=== PATIENT | female | born 1995 | race Caucasian/White ===

== ENCOUNTER 2017-11-06 16:30 | Inpatient (IN) | payer OTHER ==
[~2017-11-06] VITALS: Ht 167.6 cm; Wt 92.5 kg
[~2017-11-06 16:30] MED LIST: BCPILLS PO; NAPR1TAB9 PO
[2017-11-06] MEDS ORDERED: LACTATED RINGER'S 1000ML 1,000 ML IV PRN (17:06)
[2017-11-06 17:30] LABS: HEMATOCRIT 36.7 % (37-47); HEMOGLOBIN 12.2 g/dL (12.0-16.0); MEAN CELL VOLUME 82.5 fL (80-100); MEAN CORPUSCULAR HEMOGLOBIN 27.4 pg (25-34); MEAN CORPUSCULAR HGB CONC 33.2 g/dl (32-36); MEAN PLATELET VOLUME 9.7 fL (7.4-10.4); PLATELET COUNT 276 K/uL (130-400); RED CELL DISTRIBUTION WIDTH CV 14.7 % (11.5-14.5); RED CELL DISTRIBUTION WIDTH SD 44.6 fL (36.4-46.3); WHITE BLOOD COUNT 13.07 K/uL (4.8-10.8)
[2017-11-06] MEDS ORDERED: LACTATED RINGER'S 1000ML 500 ML IV PRN ×2 (17:41→20:28)
[2017-11-06] MEDS ORDERED: OXYTOCIN 30 UNITS/500ML NSS IV PRN (17:45)
[2017-11-06] MEDS ORDERED: PRENTAB26 PO (17:58)
[2017-11-06 17:59] VITALS: Ht 167.6 cm; Wt 92.5 kg
[2017-11-06] MEDS: LACTATED RINGER'S 1000ML 1,000 ML IV SCH ×2 (18:16→20:28)
[2017-11-06] MEDS ORDERED: BUPIVACAINE 0.25% 30 ML VIAL ONE (19:28)
[2017-11-06] MEDS ORDERED: FENTANYL CITRATE INJ 50 MCG/1 ML 2 ML VIAL ONE (19:28)
[2017-11-06] MEDS ORDERED: EpHEDrine SULFATE INJ 50 MG/ML AMP ONE (19:28)
[2017-11-06] MEDS ORDERED: FENTANYL 2MCG/ML ROPIV 1.25MG/ML 100ML BAG ONE (19:29)
[2017-11-06] MEDS ORDERED: NALOXONE HCL INJ 1 MG in SODIUM CHLORIDE 0.9% 1000ML 1,000 ML IV PRN ×4 (20:28)
[2017-11-06] MEDS ORDERED: PROMETHAZINE HCL INJ 25 MG in SODIUM CHLORIDE 0.9% 50ML 50 ML IV PRN (20:30)
[2017-11-06] MEDS ORDERED: DiphenhydrAMINE HCL 50 MG/ML VIAL IV PRN (20:30)
[2017-11-06] MEDS ORDERED: FENTANYL 2MCG/ML ROPIV 1.25MG/ML 100ML BAG EPI PRN (20:30)
[2017-11-06] MEDS ORDERED: NALBUPHINE HCL INJ 10 MG/ML AMP IV PRN (20:30)
[2017-11-06] MEDS ORDERED: NALOXONE HCL INJ 0.4 MG/1 ML VIAL/CARP IV PRN (20:30)
[2017-11-06] MEDS ORDERED: EpHEDrine SULFATE INJ 50 MG/ML AMP IV PRN (20:30)
[2017-11-06] MEDS ORDERED: ONDANSETRON INJ 2 MG/ML 2 ML VIAL IV PRN (20:30)
[2017-11-07] MEDS ORDERED: FENTANYL CITRATE INJ 50 MCG/1 ML 2 ML VIAL ONE (00:14)
--- NOTE | 2017-11-07 00:24 | Anesthesiology Progress Note ---
Post OP Pain Management Date & Time of Service November 07, 2017 at 00:20 Subjective Therapies: Epidural/IV Drugs, Marcaine, Fentanyl pain is 10/10 Objective Cathether Site: examined, palpated, intact, dry, non-tender, without erythma, without exudate Assessment & Plan Pain Relief Assessment: epiduralto be bolused Plan: At 0018,epidural catheter bolused with 12 ml of 0.17% bupivacaine + 100 mcgs fentanyl with incremental aspirations and injections. Vital signs are stable.
[2017-11-07] MEDS ORDERED: OXYTOCIN 30 UNITS/500ML NSS IV PRN (01:30)
[2017-11-07] MEDS ORDERED: DIPHTHERIA/TETANUS/PERTUSSIS 0.5 ML SYR/VIAL IM. ONE (01:30)
[2017-11-07] MEDS ORDERED: SUPERCREAM 0.870 % 15GM JAR EXT PRN (01:30)
[2017-11-07] MEDS ORDERED: OXYCODONE/ACETAMINOPHEN 5-325 TAB PO PRN (01:30)
[2017-11-07] MEDS ORDERED: LANOLIN OINT EXT PRN (01:30)
[2017-11-07] MEDS ORDERED: BENZOCAINE 20% AER SPR 82.5 GM CAN EXT PRN (01:30)
[2017-11-07] MEDS ORDERED: ACETAMINOPHEN 325 MG TAB PO PRN (01:30)
[2017-11-07] MEDS ORDERED: HYDROCORTISONE ACETATE 25 MG SUPP PR PRN (01:30)
--- NOTE | 2017-11-07 03:35 | Anesthesia Procedure Note ---
Anesthesia Epidural Removal Nt Date & Time November 07, 2017 at 03:35 Vital Signs Pain Intensity: 0.0 Notes Mental Status: alert / awake / arousable, participated in evaluation Nausea / Vomiting: adequately controlled Pain: adequately controlled Airway Patency, RR, SpO2: stable & adequate BP & HR: stable & adequate Hydration State: stable & adequate Neuraxial Anesthesia: was administered Anesthetic Complications: no major complications apparent, pt satisfied with anesthetic care Epidural: removed without complications, with tip intact
[2017-11-07 04:20] VITALS: BP 127/78; PULSE 108; TEMP 36.9
--- NOTE | 2017-11-07 04:22 | DELIVERY SUMMARY ---
DATE OF OPERATION: 11/07/2017 TIME OF DELIVERY: 1:03 a.m. DELIVERY OF PLACENTA: 1:05 a.m. DELIVERY NOTE: The patient is a 21-year-old 1, para 0 at 38 weeks and 4 days gestation, who was admitted to labor and delivery on the evening of 11/06/2017 with spontaneous rupture of membranes that occurred at 1550. A large amount of clear amniotic fluid was noted. On arrival, she was grossly ruptured. She was found to be 2 to 3 cm, 70% effaced, and -2 station. After the patient was allowed to ambulate for a couple of hours, oxytocin per protocol was begun for labor augmentation. She received an epidural for anesthesia. She reached complete dilation at 0049 on 11/07/2017 with urge to push. The patient pushed to delivery at 1:03 a.m. She delivered a viable male in the left occiput anterior position to an intact perineum. Nuchal cord x1 was reduced at delivery. The baby was then delivered and placed on the patient's abdomen. Cord was clamped x2 and cut. Apgars were 8 at 1 minute and 10 at 5 minutes. Please see nursing notes for further baby assessment. Cord blood was then obtained, and intact placenta with 3-vessel cord was delivered at 1:05 a.m. Oxytocin infusion was then begun. The lower uterine segment and vagina were cleared of any blood clots and debris. Exploration of the perineum noted a right labial laceration, which was repaired with 3-0 Vicryl suture in continuous running fashion. Excellent hemostasis was noted. No other lacerations were seen. Estimated blood loss was 200 mL. All sponge, instrument, and needle counts found to be correct x2. Both the patient and baby tolerated the delivery well and were in recovery with stable vital signs. I attest to the content of the Intraoperative Record and any orders documented therein. Any exception s are noted below.
[2017-11-07] MEDS: IBUPROFEN 600 MG TAB PO PRN ×3 (06:14→16:49)
[2017-11-07] MEDS ORDERED: FENTANYL CITRATE INJ 50 MCG/1 ML 2 ML VIAL IV PRN (07:45)
[2017-11-07] MEDS: DOCUSATE SODIUM 100 MG CAP PO SCH ×2 (08:36→19:37)
[2017-11-07] MEDS: PRENATAL VITAMIN TAB PO SCH (08:36)
[2017-11-07] MEDS: FERROUS SULFATE 325 MG TAB PO SCH (08:37)
[2017-11-07 08:43] VITALS: BP 132/89; PULSE 90; TEMP 36.6; O2SAT 99
[2017-11-07 12:25] VITALS: BP 133/85; PULSE 97; TEMP 36.9; O2SAT 98
[2017-11-07 19:25] VITALS: BP 124/79; PULSE 90; TEMP 36.8
[2017-11-08 00:35] VITALS: BP 108/69; PULSE 89; TEMP 36.7
[2017-11-08] MEDS: IBUPROFEN 600 MG TAB PO PRN ×5 (00:36→19:30)
[2017-11-08 07:09] LABS: HEMATOCRIT 34.8 % (37-47); HEMOGLOBIN 11.4 g/dL (12.0-16.0)
[2017-11-08 07:56] VITALS: BP 133/87; PULSE 105; TEMP 36.7
[2017-11-08] MEDS: DOCUSATE SODIUM 100 MG CAP PO SCH ×2 (08:51→19:30)
[2017-11-08] MEDS: FERROUS SULFATE 325 MG TAB PO SCH (08:51)
[2017-11-08] MEDS: PRENATAL VITAMIN TAB PO SCH (08:51)
--- NOTE | 2017-11-08 09:29 | OB/GYN Progress Note ---
[facility]UST[facility] HYGENIST Progress Note Date of Service November 08, 2017. Subjective conversation w/ patient, physical exam Ambulation: ambulating normally Voiding: no voiding problems Passing Gas: Yes Diet Tolerance: Regular Diet Lochia: Small Feeding Type: Breast Feeding Objective Vital Signs Date Time Temp Pulse Resp B/P (MAP) Pulse Ox O2 Delivery O2 Flow Rate FiO2 11/08/17 07:56 36.7 105 20 133/87 (102) Room Air 11/08/17 07:40 Room Air 11/08/17 00:35 Room Air 11/08/17 00:35 36.7 89 16 108/69 (82) Room Air 11/07/17 19:25 36.8 90 20 124/79 (94) Room Air 11/07/17 15:30 Room Air 11/07/17 12:25 36.9 97 20 133/85 (101) 98 Room Air Physical Exam General Appearance: WELL-APPEARING, NO APPARENT DISTRESS Abdomen: non tender, soft Fundus: Firm Extremities: non-tender, normal inspection, no pedal edema Laboratory Results Last 24 Hours Test 11/08/17 06:09 Hemoglobin 11.4 g/dL Hematocrit 34.8 % Assessment and Plan Post- Day Number: 1 Continue Routine Care: tent d/c in AM
[2017-11-08 15:40] VITALS: BP 127/84; PULSE 98; TEMP 36.9; O2SAT 97
[2017-11-08] MEDS ORDERED: BISACODYL 5 MG TABEC PO SCH (20:00)
[2017-11-09 00:20] VITALS: BP 131/82; PULSE 96; TEMP 36.5
[2017-11-09] MEDS: IBUPROFEN 600 MG TAB PO PRN ×2 (00:25→06:14)
[2017-11-09] MEDS ORDERED: BISACODYL 10 MG SUPP PR PRN (07:00)
[2017-11-09 07:14] LABS: HEMATOCRIT 34.2 % (37-47); HEMOGLOBIN 11.3 g/dL (12.0-16.0); MEAN CELL VOLUME 83.8 fL (80-100); MEAN CORPUSCULAR HEMOGLOBIN 27.7 pg (25-34); MEAN PLATELET VOLUME 9.2 fL (7.4-10.4); PLATELET COUNT 286 K/uL (130-400); RED CELL DISTRIBUTION WIDTH CV 15.1 % (11.5-14.5); RED CELL DISTRIBUTION WIDTH SD 46.9 fL (36.4-46.3); WHITE BLOOD COUNT 11.43 K/uL (4.8-10.8)
[2017-11-09 08:16] VITALS: BP 112/70; PULSE 92; TEMP 36.6
[2017-11-09] MEDS: DOCUSATE SODIUM 100 MG CAP PO SCH (08:22)
[2017-11-09] MEDS: PRENATAL VITAMIN TAB PO SCH (08:23)
[2017-11-09] MEDS: FERROUS SULFATE 325 MG TAB PO SCH (08:23)
[2017-11-09] MEDS ORDERED: MTR600X PO (09:49)
--- NOTE | 2017-11-09 09:50 | Discharge Instructions ---
Discharge Instructions Date of Service November 09, 2017. Admission Reason for Admission: Check Rupture Of Membranes Discharge Discharge Diagnosis / Problem: term delivered Discharge Goals Goal(s): Routine recovery after delivery Activity Recommendations Activity Limitations: as noted below Exercise/Sports Limitations: gradually increase as tolerated May Resume Sexual Activity: after follow-up appointment Shower/Bathe: no limitations Driving or Machine Use: resume 3 days after discharge . Current Hospital Diet Patient's current hospital diet: Regular OB Diet Discharge Diet Recommended Diet: Regular OB Diet Pending Studies Studies pending at discharge: no Medical Emergencies . Who to Call and When: Medical Emergencies: If at any time you feel your situation is an emergency, please call 911 immediately. . Non-Emergent Contact Non-Emergency issues call your: Primary Care Provider . . "Provider Documentation" section prepared by Zuhair Matamoros. .
--- NOTE | 2017-11-09 09:51 | OB/GYN Progress Note ---
SPACE PHYSICIST Progress Note Date of Service November 09, 2017. Subjective conversation w/ patient, physical exam Ambulation: ambulating normally Voiding: no voiding problems Passing Gas: Yes Diet Tolerance: Regular Diet Lochia: Small Feeding Type: Breast Feeding Objective Vital Signs Date Time Temp Pulse Resp B/P (MAP) Pulse Ox O2 Delivery O2 Flow Rate FiO2 11/09/17 08:16 36.6 92 20 112/70 (84) Room Air 11/09/17 07:40 Room Air 11/09/17 00:20 36.5 96 18 131/82 (98) Room Air 11/09/17 00:20 Room Air 11/08/17 15:40 97 Room Air 11/08/17 15:40 36.9 98 18 127/84 (98) 97 Room Air Physical Exam General Appearance: WELL-APPEARING, NO APPARENT DISTRESS Abdomen: non tender, soft Fundus: Firm Extremities: non-tender, normal inspection, no pedal edema, no calf tenderness Laboratory Results Last 24 Hours Test 11/09/17 06:00 White Blood Count 11.43 K/uL Red Blood Count 4.08 M/uL Hemoglobin 11.3 g/dL Hematocrit 34.2 % Mean Corpuscular Volume 83.8 fL Mean Corpuscular Hemoglobin 27.7 pg Mean Corpuscular Hemoglobin Concent 33.0 g/dl RDW Standard Deviation 46.9 fL RDW Coefficient of Variation 15.1 % Platelet Count 286 K/uL Mean Platelet Volume 9.2 fL Assessment and Plan Post- Day Number: 2 Continue Routine Care: discharged
[2017-11-09 10:01] VITALS: BP_DIAS 70; PULSE 92; TEMP 36.6
== END 2017-11-09 11:36 | disposition home or self-care (01) | DRG 775 ==
LOC: C.OPB 16:30 → C.LD 16:30 → C.OPB 17:09 → C.LD 17:09 → C.OBG 11-07 04:12
PROVIDERS: ADMIT Obstetrics & Gynecology; ATTEND Obstetrics & Gynecology
PROC: 10E0XZZ Delivery of Products of Conception, External Approach (ICD-10-PCS; principal; 2017-11-07)
DX: O70.0 First degree perineal laceration during delivery (principal); O69.81X0 Labor and delivery complicated by cord around neck, without compression, not applicable or unspecified; Z37.0 Single live birth; Z3A.38 38 weeks gestation of pregnancy

== ENCOUNTER 2024-09-16 07:38 | Inpatient (IN) ==
[2024-09-16] MEDS ORDERED: LIDOCAINE 1% LOCAL 20 ML VIAL INFIL PRN (10:07)
[2024-09-16] MEDS ORDERED: OXYTOCIN 30 UNITS/NSS 30 UNITS/500 ML BAG IV PRN ×2 (10:07→16:49)
[2024-09-16] MEDS ORDERED: CALCIUM CARBONATE 500 MG CHEWABLE TAB PO PRN (10:07)
--- NOTE | 2024-09-16 10:14 | History & Physical Report ---
Date of Service September 16, 2024 Assessment & Plan Admission and Anticipated Discharge Date Admission Date: September 16, 2024 History of Present Illness Chief Complaint: induction of labor Primary Care Provider: Jimmie Peguero MD 27 [id number] at 39.1 weeks admitted for IOL for GDM on insulin. Blood sugars have been OK and patient states she has not been taking her insulin. GBS is positive. Allergies Allergy/AdvReac Type Severity Reaction Status Date / Time No Known Allergies Allergy Unverified 12/15/20 12:04 Home Medications Medication Instructions Recorded Confirmed Type vit no.133-ferrous 1 tab PO DAILY 08/14/23 09/16/24 History fumarate 28 mg-folic acid 800 mcg tablet () ferrous sulfate 325 mg (65 mg 325 mg PO DAILY 08/20/24 09/16/24 History iron) tablet (Iron (ferrous sulfate)) insulin glargine 100 unit/mL (3 12 unit subcut PM 09/01/24 09/01/24 History mL) subcutaneous pen (Lantus Solostar U-100 Insulin) Patient History Medical History Hyperhidrosis Gestational diabetes mellitus (GDM) on insulin Anxiety Surgical History [place] teeth removed Family History Grandmother (Maternal) Diabetes Father Hypertension Other Gestational diabetes Social History Smoking Status: Former smoker Tobacco Type: E-cigarettes / Vaping Second Hand Exposure: No; Do You Dip or Chew Tobacco: No; Hx Alcohol Use: No Hx Substance Use: No Preferred Language: Ken[place] Communication Ability: Effective Settlement Worker Required: No Beliefs That Will Affect Care: None marital status: marital status details: Inderjit Clement Current Living Situation: Spouse current occupational status: employed current occupation: [employer] Insurance [employer]it Other Information That Helps Us Care for You: No Feels Safe at Home: Yes Safety Concerns: Feels Safe At This Time Diet Comment: Diabetic Assistive Devices: Glasses OB History x1 CONDUCTOR ORCHESTRA History neg Review of Systems All systems reviewed & are unremarkable except as noted in HPI & below Physical Exam Constitutional: WD/WN, vitals as above Eyes: PERRL, conjunctivae normal, anicteric sclerae Respiratory: normal respiratory effort, lungs clear to auscultation Cardiovascular: RRR, no murmur, no edema Gastrointestinal (Abdomen): Inspection/Auscultation: abdomen normal to inspection Musculoskeletal: Extremities: extremities normal to inspection Skin: no rashes, warm and dry Neurologic: patellar DTR's 2+ bilat, sensation intact Psychiatric: A+Ox3, euthymic affect Genitourinary: no vaginal lesions, no adnexal mass Manual OB Exam: + cervical dilation 2 cm and 3 cm, + cervical effacement 50% and + station -2 OB Exam Monitor Tracing: + external FHT monitor used, + external uterine monitor used, + category I and + normal FHT variability Cervix anterior/mod. EFW 7.0-7.5 lbs. will start Oxytocin Results & Data Vital Signs (Past 12 Hours) Vital Signs Temp Pulse Resp BP 09/16/24 07:52 36.4 C L 100 H 20 132/81 09/16/24 07:45 100 H 20 132/81 Laboratory Results 09/16/24 09:03 POC Glucose 109 H Monitoring External Monitor Cat i
[2024-09-16 10:48] LABS: Hematocrit (blood only) 35.2 % (37.0-47.0); Hemoglobin 11.7 g/dl (12.0-16.0); Mean Corpuscular Hemoglobin 27.3 pg (25.0-34.0); Mean Corpuscular Hgb Conc 33.2 g/dL (32.0-36.0); Mean Corpuscular Volume 82.1 fL (80.0-100.0); Mean Platelet Volume 9.7 fL (9.4-12.4); Platelet Count 252 K/uL (130-400); RDW Coefficient of Variation 16.1 % (11.5-14.5); RDW Standard Deviation 48.6 fL (36.4-46.3); Red Blood Count 4.29 M/uL (4.20-5.40); White Blood Count 9.82 K/ul (4.8-10.8)
[2024-09-16] MEDS: OXYTOCIN 30 UNITS/NSS 30 UNITS/500 ML BAG IV PRN (10:59)
[2024-09-16] MEDS: LACTATED RINGER'S 1,000 ML IV PRN (10:59)
[2024-09-16] MEDS: PENICILLIN GK 6 MU in DEXTROSE 5% 250 ML IV STA (11:01)
--- OUTSIDE RECORDS SUMMARY | 2024-09-16 11:59 | External Medical Summary | Summary of Care ---
Author Name Unknown Organization [facility] [address] [address] Phone [phone] Care Team Providers Care Textile Supervisor Name Role Phone Unavailable Primary Care Provider Unavailabl e Reason for Visit * Reason Comments Return Visit Encounter Details Date Type Department Care Team (Late st Contact Info) Description 09/03/2024 10:00 AM EDT Office Visit Gynecology/Obstetric s [facility] [place] [address] [id number] Juliette Mendoza CRNP [address] [id number] [place], Non Stress Tests [facility] [address] [id number] High-risk , third trimester*; Rh negative, antepartum; Carrier of group B Streptococcus; Obesity in ; Short interval between pregnancies complicating , antepartum; Insulin controlled gestational diabetes mellitus (GDM) in third trimester; Antepartum anemia complicating ; COVID-19 affecting in third trimester Allergies No known active allergiesdocumented as of this encounter (statuses as of 09/03/2024) Medications Plus 27-1 MG Oral TabletIndication s:Normal in first trimester Take 1 Tablet by mouth in the morning. 100 Tablet 3 07/04/2023 11:02 AM EST 01/11/20 23 Active Breast Pump Pump daily while 1 Each 06/26/19 24 Active OneTouch Verio w/Device KitIndications:H istory of gestational diabetes mellitus (GDM),Encounter for supervision of other normal in first trimester Use as directed. For testing blood sugar 4 times a day (fasting, and 1 hour after each meal - breakfast, lunch, dinner). 1 Kit 03/03/2024 12:34 PM EDT 03/03/20 24 Active OneTouch Verio In Vitro Strip (Glucose Blood)Indication s:History of gestational diabetes mellitus (GDM),Encounter for supervision of other normal in first trimester For testing blood sugar 4 times a day (fasting, and 1 hour after each meal - breakfast, lunch, dinner). 400 Strip 1 04/09/2024 5:51 PM EDT 04/09/20 24 Active LancetsIndicatio ns:History of gestational diabetes mellitus (GDM),Encounter for supervision of other normal in first trimester For testing blood sugar 4 times a day (fasting, and 1 hour after each meal - breakfast, lunch, dinner). 400 Each 1 04/09/20 24 Active LancetsIndicatio ns:History of gestational diabetes mellitus (GDM),Encounter for supervision of other normal in first trimester For testing blood sugar 4 times a day (fasting, and 1 hour after each meal - breakfast, lunch, dinner). 100 Each 1 04/13/2024 9:20 AM EDT 04/12/20 24 Active BD Pen Needle Mini U/F 31G X 5 MM (Insulin Pen Needle)Indicatio ns:Insulin controlled gestational diabetes mellitus (GDM) in second trimester Use to inject insulin once daily. 100 Each 3 05/18/2024 3:22 PM EST 05/14/20 24 Active Insulin Glargine Solostar 100 UNIT/ML Subcutaneous Solution Pen-injector (Lantus SoloStar)Indicat ions:Insulin controlled gestational diabetes mellitus (GDM) in second trimester Inject 12 Units under the skin at bedtime. Take with bedtime snack. 15 mL 3 05/21/2024 12:04 PM EST 05/18/20 24 Active Iron-Vitamin C 65-125 MG Oral Tablet (Vitron C)Indications:An tepartum anemia complicating Take 1 Tablet by mouth in the morning. 60 Tablet 3 07/05/2024 3:57 PM EST 07/05/19 25 Active documented as of this encounter (statuses as of 09/03/2024) Active Problems Problem Noted Date Diagnosed Date COVID-19 affecting in third trimester 08/06/2024 Overview (08/06/2024): + test 07/16/24 Antepartum anemia complicating 025 GDM (gestational diabetes mellitus) 03/26/2024 Overview (08/30/2024): Diagnosed at 14 weeks via home glucose monitoring Nutrition consult ordered OneTouch Verio meter Note: history of GDMA2 (insulin) in prior 03/29/24: MFM ADAPT consult complete. Referred to [facility]. Instructions provided to report blood sugars each week for MFM review; A1C ordered; she has no blood sugar log to review today 04/05/24: A1C 4.9% 04/05/24: RPM reviewed; Stable overall; recommend fasting 8-10 hours overnight along with having a bedtime snack of 30g CHO paired with protein 04/12/2024-RPM-4 of 7 elevated fasting blood sugars. Patient and C PARs messaged to schedule follow up ADAPT appointment. 04/16/24: Follow-up ADAPT complete; stable overall; continue diet controlled; recommend fasting 8-10 hours overnight along with having a bedtime snack of 30g CHO paired with protein 04/19/20244568-MPT-llvm message to update numbers since ADAPT appointment on 04/16. 04/22/20244607-BFR-ubagcjix past 3 days; overall stable. 04/26/20248582-YEF-ccmxapa reporting. Sent message to update numbers 05/03/20249156-LMW-ofxd limited reported values. 2 of 2 elevated fasting blood sugars. Patient and C PARs messaged to schedule follow up ADAPT appointment. 05/10/20241870-LRW-wlocyutb one number in the past week. Sent message to patient reminding her of follow up ADAPT appointment today at 1230 and to have last week of sugars available for review. 05/10/24: Follow-up ADAPT visit complete; minimal testing and only 2 blood sugars to review; F/U ADAPT scheduled 11/26/24 @ 12:50PM 05/13/24: RPM reviewed; patient reporting blood sugars in since last visit; fasting elevations noted; messaged patient about considering starting medication 05/14/24: RPM reviewed; elevated FBS; as discussed with patient on 05/10, medication would be recommend pending blood sugar review; patient agreeable to insulin, she took in last and is comfortable with insulin administration; ordered Lantus 10 units at bedtime; encouraged patient to keep F/U ADAPT on 05/18/24 @ 12:50 as scheduled 05/17/20245315-BHH-ixzitcol fasting blood sugars. Reports just started insulin 05/15/2024 at night. Has follow up ADAPT appointment scheduled tomorrow. 05/18/20243549-JJK-dehayfq had to cancel her follow up ADAPT appointment today due to work. Sent message to maternal medicine nurse practitioners to review elevated fasting blood sugars 05/18/24: RPM reviewed; patient started insulin on 05/15; FBS improving but remains mildly elevated; increase to Lantus 12 units at bedtime 05/24/24: RPM reviewed; only reported 2/7 days of blood sugars; asked to update blood sugars in [facility] Robert 05/31/20241797-DXT-jmegjmxx 5 days in the past week; stable 06/07/20246025-ODX-dlhuzp 06/14/24: RPM reviewed; stable 06/21/20241480-WEQ-bmz not report 06/14 through 06/19; sent message asking her to update values. 06/24/20247227-VGW-cgapuvqi 3 of the past 4 days; stable 06/28/20247081-AEA-ovc not reported in past 3 days. Sent message to be consistent with testing/reporting. Will schedule follow up ADAPT next week if continues to not report regularly 07/01/20240946-DRW-gtc reported past 3 days. Overall stable (< 50% elevated) 07/07/20247979-JPD-yymvsofv 4 of the past 6 days. Stable (1 elevated fasting blood sugar) 07/13/20249775-YEL-nhrlwyf stable (< 50% elevated) 07/19/20246451-AXW-bbdcord reporting (what is reported is within normal limits). Sent message stating she had COVID and was focused on resting and staying hydrated rather than testing sugars. Reports will get "back on track" this week. 07/26/20245151-IGE-zxdnunyd 2 days in the past week. Sent message to update missed days for review. 08/02/20244351-GKA-wicbstbr 2/7, 2/9, and two values today. Stable 08/09/24: RPM reviewed; only reported one day; asked for updated blood sugars 08/16/24: RPM reviewed - no blood sugars reported; will ask patient to update and will offer ADAPT visit 08/20/20245395-MZJ-ijnpisds 08/16 to 08/19; stable 08/23/20245766-HNU-moxckg 08/30/20243888-HYW-kdyviipe 5 of 7 days in the past week; overall stable (< 50% elevated) Assessment & Plan (07/29/2024 10:29 AM EST): Needs ADAPT follow up visit. Assessment & Plan (07/01/2024 12:18 PM EST): Working with ADAPT. Assessment & Plan (05/25/2024 2:03 PM EST): Working with ADAPT; will continue to send sugars (fewer checked last week due to holiday). Assessment & Plan (03/26/2024 9:37 AM EDT): CONSIDERATIONS: Reviewed etiology and risks associated with gestational diabetes mellitus (GDM), including risks to , fetus, and maternal progression to Type 2 DM. Instructed on proper use of glucometer; supplies ordered, if indicated. Advised that life-long screening for diabetes is recommended every 1-3 years. RECOMMENDATIONS: Recommend monitoring blood sugars with daily fasting blood sugar (maintained at less than 95) and 1 hour postprandial measurements (maintained at less than 140). Medications should be adjusted to maintain these target values. Report levels to MFM (Maternal- Medicine) weekly. Recommend nutrition consult with RDN (Registered Dietitian Air Twister Winder). Lifestyle changes are also indicated including optimizing gestational weight gain and physical activity of 30 minutes per day, if not otherwise contraindicated in . Insulin is preferred if medications are indicated to optimize euglycemia. Metformin (preferred over glyburide) may also be used in some circumstances. Reviewed the risks and benefits of each. Recommend hemoglobin A1c testing now if diagnosed with GDM prior to 24 weeks as there is potential for pre-existing diabetes. If result is 6.5% or greater, then will diagnose with overt Type 2 DM and treat as pre-existing diabetes. If compliance later in gestation is question, a HBA1c can be assessed with a goal of less than 6%. Recommend early anatomy evaluation at 11-16 weeks gestation. Recommend anatomy survey at 19-20 weeks. Recommend echocardiography at 21-23 weeks if hemoglobin A1c 6.5% or greater Recommend ultrasound, surveillance and delivery as follows: A1GDM, delivery should be accomplished by 41w0d. A2GDM, recommend growth assessment with MFM every 4 weeks, initiate surveillance with twice weekly NSTs at 32 weeks and continue until delivery at 39 weeks. Recommend intrapartum monitoring every 1-2 hours (A2GDM) or every 4 hours (A1GDM) and treat with insulin if indicated. Recommend 2-hour glucose tolerance testing with 75-gram glucose load during admission (or 6-8 weeks if not completed). High-risk , third trimester 02/16/2024 Obesity in 02/16/2024 Overview (03/29/2024): The patient's pre-gravid BMI is 33.28. Class 1 Assessment & Plan (05/25/2024 2:03 PM EST): Low risk NIPT appreciated. Assessment & Plan (03/29/2024 9:39 AM EDT): CONSIDERATIONS: Discussed obstetrical risks associated with class I obesity (pre- BMI of 30 to 34.9) Reviewed that the accuracy of ultrasound at diagnosing anomalies is significantly decreased for women with an increased BMI. RECOMMENDATIONS: Recommend restricting weight gain during to 11-20 pounds. Consider referral for nutrition consult. Recommend evaluation for signs and symptoms (snoring, excessive daytime sleepiness witnessed apnea or unexplained hypoxia) of obstructive sleep apnea. If any of these are present, referral to Sleep Medicine specialist for further evaluation should be considered. Recommend Maternal- Medicine ultrasound for anatomy at 20 weeks. Short interval between pregn ancies complicating , antepartum 02/16/2024 Overview (02/16/2024): Vaginal delivery 08/14/2023. Assessment & Plan (03/26/2024 9:34 AM EDT): CONSIDERATIONS: Reviewed that a short Inter- Interval (IPI) may place the patient at an increased risk for , low weight, and SGA . IPI is defined as less than a year from the time of delivery of one to conception of the next . Some studies show that a short IPI may be associated with an increased risk for maternal , third trimester bleeding, premature rupture of membranes, puerperal endometritis, and anemia as well as placental abruption. Carrier of group B Streptococcus 07/31/2023 Rh negative, antepartum 01/10/2023 Assessment & Plan (06/05/2023 12:20 PM EST): Patient is 29w0d . rhogam given 06/05/2023 Kaelyn Tijerina LPN Hyperhidrosis 09/28/2021 GONZALO (generalized anxiety disorder) 01/24/2021 Current mild episode of major depressive disorde r 01/24/2021 Estimated Date of Delivery Comme nts Yes 09/22/2024 Based on last me nstrual period of 12/17/2023 (Exact Date) documented as of this encounter (statuses as of 09/03/2024) Resolved Problems Problem Noted Date Diagnosed Date Resolved Date History of gestational diabe weston mellitus (GDM) 02/16/2024 08/06/2024 Overview (03/29/2024): History of GDMA2 (insulin) Assessment & Plan (03/26/2024 9:33 AM EDT): Reviewed with patient that women who have a history of GDM in a previous may have up to a 75% risk for GDM in subsequent pregnancies. Insulin controlled gestation al diabetes mellitus (GDM) during 02/13/2023 09/22/19 Overview (08/12/2023): Diagnosed at 13 weeks Nutrition referral ordered; appt scheduled on 02/26/2023 OneTouch Verio meter Lab Results Component Value Date/Time 50-G GESTATIONAL GLUCOSE, 1 HOUR - [facility] 147 (H) 02/10/2023 09:11 AM 100-G GESTATIONAL GLUCOSE, 1 HOUR - [facility] 182 (H) 02/13/2023 08:46 AM 100-G GESTATIONAL GLUCOSE, 2 HOUR - [facility] 130 02/13/2023 09:45 AM 100-G GESTATIONAL GLUCOSE, 3 HOUR - [facility] 49 (L) 02/13/2023 10:45 AM 100-G GESTATIONAL GLUCOSE, FASTING - [facility] 99 (H) 02/13/2023 07:45 AM Typical scheduled: dinner = 5-6PM dinner; no bedtime snack; bedtime = 10PM; wake up = 645AM 02/25/23: MFM ADAPT consult complete. Enrolled in [facility]. Instructions provided to report blood sugars each week for MFM review; started checking today - FBS 96; A1C ordered; recommend fasting 8-10 hours overnight along with having a bedtime snack of 30g CHO paired with protein 03/06/23- sugars elevated- sent msg to schedule ADAPT appt 03/07/23: ADAPT complete; elevated fasting; Ordered Lantus 10 units at bedtime 03/14/23- FBS elevated msg sent to the MUSIC SOUND LIGHT TECHNICIAN's 03/14/23: RPM reviewed. 11/30 FBS elevated. Increase Lantus to 15 units at bedtime --KW 03/18/23: RPM Stable; few numbers reported 03/25/23- stable Growth q4 weeks after 20 weeks, twice weekly NSTs at 32 weeks, delivery in 39th week/by KIRA 04/01/23- stable 04/08/23- stable 04/14/23-stable 04/22/23: RPM reviewed, 12/01 FBS elevated, other readings are missing. After meal values-many missing- but overall stable. Increase Lantus to 20 units at bedtime --KW 04/22/23-stable 04/29/23- stable; very few sugars reported 05/06/23- stable; few sugars reported-many missed 05/13/23-not many sugars reported some elevated- sending to MUSIC SOUND LIGHT TECHNICIAN to review 05/13/23: RPM reviewed. Many missed readings. Sent msg to patient to please try to check 4x daily --KW 05/20/23-msged patient to report sugars 05/27/23- sugars elevated please review 05/27/23: RPM Increase Lantus to 25 units at bedtime 06/03/23- some sugars reported- stable- will remind patient to send sugars 4 times daily 06/10/23-stable 06/17/23: RPM only 1 blood sugar reported this week. 06/24/23: RPM just started reporting blood sugars on 06/24/23; last reported 06/09/23 07/01/23: RPM reviewed; FBS elevated; increase to Lantus 30 units at bedtime 07/08/23-stable 07/15/23-stable 07/22/23- stable 07/28/23- stable; patient has concerns regarding low BS . Msg sent to MUSIC SOUND LIGHT TECHNICIAN 07/28/23: RPM reviewed; patient has been holding bedtime insulin due to fasting blood sugars in the 70s-80s. Reviewed signs and symptoms of true hypoglycemia and encouraged patient to reach out if having symptomatic lows. Recommend resuming Lantus 30 units at bedtime as this morning's FBS was 104. 08/04/23: RPM reviewed; stable overall although some missing readings; encouraged consistent reporting and no medication changes at this time 08/12/23- many missed numbers; msg sent to patient Assessment & Plan (06/05/2023 2:20 PM EST): Working with ADAPT. Assessment & Plan (05/08/2023 9:01 AM EST): Working with ADAPT. Not consistently reporting sugars, please encourage compliance with care. Assessment & Plan (04/01/2023 1:22 PM EDT): Hemoglobin AIC Results: Lab Results Component Value Date/Time HEMOGLOBIN A1C - [facility] 5.1 03/07/2023 10:54 AM Sugars under good control with ADAPT. Will follow for growth and plan for NSTs at 32 weeks. Questions answered. Assessment & Plan (02/27/2023 5:02 PM EDT): Working with ADAPT. Assessment & Plan (02/21/2023 10:51 AM EDT): CONSIDERATIONS: Reviewed etiology and risks associated with gestational diabetes mellitus (GDM), including risks to , fetus, and maternal progression to Type 2 DM. Instructed on proper use of glucometer; supplies ordered, if indicated. Advised that life-long screening for diabetes is recommended every 1-3 years. RECOMMENDATIONS: Recommend monitoring blood sugars with daily fasting blood sugar (maintained at less than or equal to 95) and 1 hour postprandial measurements (maintained at less than or equal to 140). Medications should be adjusted to maintain these target values. Report levels to MFM (Maternal- Medicine) weekly. Recommend nutrition consult with RDN (Registered Dietitian Air Twister Winder). Lifestyle changes are also indicated including optimizing gestational weight gain and physical activity of 30 minutes per day, if not otherwise contraindicated in . Insulin is preferred if medications are indicated to optimize euglycemia. Metformin (preferred over glyburide) may also be used in some circumstances. Reviewed the risks and benefits of each. Recommend hemoglobin A1c testing now if diagnosed with GDM prior to 24 weeks as there is potential for pre-existing diabetes. If result is 6.5% or greater, then will diagnose with overt Type 2 DM and treat as pre-existing diabetes. If compliance later in gestation is question, a HBA1c can be assessed with a goal of less than 6%. Recommend early anatomy evaluation at 11-16 weeks gestation. Recommend anatomy survey at 19-20 weeks. Recommend echocardiography at 21-23 weeks if hemoglobin A1c greater than 6.5%. Recommend ultrasound, surveillance and delivery as follows: A1GDM, delivery should be accomplished by 41w0d. A2GDM, recommend growth assessment with MFM every 4 weeks, initiate surveillance at 32 weeks and continue until delivery at 39 weeks. Recommend intrapartum monitoring every 1-2 hours (A2GDM) or every 4 hours (A1GDM) and treat with insulin if indicated. Recommend 2-hour glucose tolerance testing with 75-gram glucose load 6-8 weeks . High-risk in third trimester 01/10/2023 09/22/2023 Overview (06/05/2023): 06/05/2023 Tdap Vaccine administered per clinic protocol. Pt given VIS(vaccine information sheet) Kaelyn Tijerina LPN Obesity in , antepartum 01/10/2023 09/22/2023 Overview (02/25/2023): The patient's pre-gravid BMI is 33.95. Class 1 Assessment & Plan (04/01/2023 1:21 PM EDT): Low risk NIPT appreciated. Assessment & Plan (02/21/2023 10:50 AM EDT): DISCUSSION: Discussed obstetrical risks associated with class I obesity (pre- BMI of 30 to 34.9). Reviewed that the accuracy of ultrasound at diagnosing anomalies is significantly decreased for women with an increased BMI. RECOMMENDATIONS: Recommend restricting weight gain during to 11-20 pounds. Consider referral for nutrition consult. Recommend evaluation for signs and symptoms (snoring, excessive daytime sleepiness witnessed apnea or unexplained hypoxia) of obstructive sleep apnea. If any of these are present, referral to Sleep Medicine specialist for further evaluation should be considered. Recommend Maternal- Medicine ultrasound for anatomy at 20 weeks. Anxiety during 01/10/202306/2023 Overview (02/25/2023): History of anxiety Took Xanax once prior to flight d/t previous panic attack; denies ongoing medication use in No current counseling/therapy Previously used medical marijuana - none during 2022 (advised continued cessation of same). Declines resources at this time. Reports an overall stable mood in . Denies any suicidal or homicidal ideation. Reports she has a good support system at home. Assessment & Plan (02/25/2023 9:31 AM EDT): CONSIDERATIONS: Untreated maternal anxiety and depression may be associated with an increased risk of multiple poor obstetrical outcomes including miscarriages, low weight, and delivery. Women with a history of anxiety or depression are at risk for recurrence both during and/or the period. Studies of first-trimester SSRI exposure do not demonstrate consistent data to support an increased risk for structural malformations. Anti-anxiety or depression medications have been associated with transient effects (withdrawal syndrome). RECOMMENDATIONS: Mental illness can and should be treated during when the benefits of treatment outweigh potential risks. Referral to behavioral health services as clinically indicated. Fatigue 01/24/2021 07/09/2021 Supervision of normal first , antepartum 09/11/2017 04/03/2018 Overview (10/30/2017): 09/26/2017 Tdap Vaccine administered per clinic protocol. Pt given VIS(vaccine information sheet) Xin Bangura RN , normal first 03/31/201710/21 Overview (10/30/2017): [facility]ires [facility] . Need for rhogam due to Rh negative mother 03/31/2017 11/07/2017 Overview (10/30/2017): Rhogam candidate Rhogam given 08/27/2017 documented as of this encounter (statuses as of 09/03/2024) Immunizations Name Administration Dates Next Due PPD 04/01/2016 TDAP (age 10 and older)(Boostrix) 06/05/2023,11/2017 TDAP, Age 7 and older, IM (Adacel) 07/02/2024 documented as of this encounter Social History Tobacco Use Types Packs/Day Years Used Date Smoking Tobacco: Former Cigarettes 0.1 1 2 016 - 2016 Smokeless Tobacco: Never Alcohol Use Standard Drinks/Week Comments Not Currently 0 (1 standard drink = 0.6 oz pur e alcohol) denies in 2023 PHQ-2 Answer Date Recorded PHQ Adult Total Score 0 01/24/2021 Hunger Vital Sign Answer Date Recorded Within the past 12 months, y ou worried that your food would run out before you got the money to buy more. Never true 01/23/20 24 Within the past 12 months, t he food you bought just didn't last and you didn't have money to get more. Never true 01/23/2024 Trevor Depression Scale Answer Date Recorded Trevor Depression Scale Total 2 08/26/2024 The thought of harming myself has occurred to me . Never 08/26/2024 Childcare Answer Date Recorded Do you feel overwhelmed with taking care of a child, family member or friend? No 01/23/2024 Does your family need help f inding childcare? (Household - for ages 0-17 years) Not on file 01/23/2024 Clothing Answer Date Recorded Have you been unable to get clothing when it was really needed? No 01/23/2024 Is your family able to get c lothes or diapers when needed? (Household - for ages 0-17 years) Not on file 01/23/2024 Personal Safety Answer Date Recorded Do you feel unsafe or have concerns for your saf ety? No 01/23/2024 Do you have concerns for you r family's safety? (Household - for ages 0-17 years) Not on file 01/23/2024 Utilities Answer Date Recorded Do you have trouble paying y our heating, water, or electric bill? No 01/23/2024 Is your family able to pay t he heat, water, or electric bill? (Household - for ages 0-17 years) Not on file 01/23/2024 Does your family have access to good internet? (Household - for ages 0-17 years) Not on file 01/23/2024 Employment Status Answer Date Recorded Are you unemployed or without regular income? No 01/23/2024 Does the household have a [facility] source of income? (Household - for ages 0-17 years) Not on file 01/23/2024 Social Connections Answer Date Recorded How often do you feel lonely or isolated from th ose around you? Never 01/23/2024 Financial Resource Strain Answer Date R ecorded Do you have any trouble payi ng for your medications, or do you think you might in the future? No 01/23/2024 Does your family have troubl e paying for medicine? (Household - for ages 0-17 years) Not on file 01/23/2024 Transportation Needs Answer Date Record ed Do you have trouble getting a ride to medical visits or work? (Adult - for ages 18 years and over) Not on file 01/23/2024 Does your family have a hard time getting a ride to doctors visits? (Household - for ages 0-17 years) Not on file 01/23/2024 Has lack of transportation k ept you from medical appointments, meetings, work, or from getting things needed for daily living? Check all that apply. No 01/23/2024 Do you (or your family) have trouble finding or paying for a ride (transportation)? (Household - for ages 0-17 years) Not on file 01/23/2024 Housing Stability Answer Date Recorded Do you currently live in a s helter or have no steady place to sleep at night? No 01/23/2024 Do you think you are at risk of becoming homeless? (Adult - for ages 18 years and over) Not on file 01/23/2024 Does your family worry about paying for your home or becoming homeless? (Household - for ages 0-17 years) Not on file 0 01/23/2024 Are you homeless or worried that you might be in the future? No 01/23/2024 Are you (or your family) duc eless or worried that you might be in the future? (Household - for ages 0-17 years) Not on file Food Insecurity Answer Date Recorded Do you need food for this week? No 01/23/2024 Are you able to get enough f ood for your family? (Household - for ages 0-17 years) Not on file 01/23/2024 Does your family need food t his week? (Household - for ages 0-17 years) Not on file 01/23/2024 Do you always have enough fo od for your family? (Household - for ages 0-17 years) Not on file 01/23/2024 Food Insecurity Answer Date Recorded Within the past 12 months, y ou worried that your food would run out before you got the money to buy more. Never true 01/23/20 24 Within the past 12 months, t he food you bought just didn't last and you didn't have money to get more. Never true 01/23/2024 Do you need food for this week? 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 on file Not on file Not on file documented as of this encounter Last Filed Vital Signs Vital Sign Reading Time Taken Comments Blood Pressure 124/72 09/03/2024 10:02 AM EDT Pulse - - Temperature - - Respiratory Rate - - Oxygen Saturation - - Inhaled Oxygen Concentration - - Weight 108 kg (238 lb) 09/03/2024 10:02 AM EDT Height 165.1 cm (5' 5") 09/03/2024 10:02 AM EDT Body Mass Index 39.61 09/03/2024 10:02 AM EDT documented in this encounter Progress Notes * Juliette Mendoza CRNP - 09/03/2024 10:03 AM EDT 37w2d Was at L&D earlier this week with contractions- started after attempting to pump colostrum. Wasnot in active labor, and sent home. Contractions have stopped, and she is not planning to pump anymore. Reports blood sugars are good. ASSESSMENT assessment with Non-stress Test completed on 09/03/2024 at 37.2weeks gestation for indication of gestational diabetes mellitus heart baseline: 140 bpm Variability: Moderate Decelerations: absent Accelerations: present Contractions: None NST start time: 0859 NST stop time: 0936 NST strip reviewed, interpreted, and approved by OB provider, DELIO Mejia . NST strip stored in clinic storage file documented in this encounter Plan of Treatment Upcoming Encounters Date Type Department Care Team (Late st Contact Info) Description 09/07/2024 9:30 AM EDT Office Visit Gynecology/Obstetrics [place] [address] [place] [id number] Juliette Mendoza CRNP [address] [place] [address] [place] Non Stress [facility] [address] [place] [address] 09/10/2024 10:00 AM EDT Office Visit Gynecology/Obstetrics [place] [address] [place] [address] Juliette Mendoza CRNP [address] [place] [address] [place], Non Stress Tests [facility] [address] [place] [address] 09/14/2024 9:30 AM EDT Office Visit Gynecology/Obstetrics [place] [address] [place] [address] Juliette Mendoza CRNP [address] [place] [address] [facility] Non Stress [facility] [address] [place] [address] 09/17/2024 10:00 AM EDT Office Visit Gynecology/Obstetrics [place] [address] [place] [address] Juliette Mendoza CRNP [address] [place] [address] [place] [facility] [address] [place] [address] Health Maintenance Due Date Last Done Comments Hepatitis B Vaccine (1 of 3 - 19+ 3-dose series) 11/15/2015 Depression Monitoring 01/24/2022 01/24/2021 COVID-19 Vaccine ( - season) 2024 Influenza Vaccine (FLU shot) (#1) 2024 04/06/2009 Pap Smear 01/10/2026 01/10/2023, 04/23, 05/10/2019 DTap/Tdap Vaccines (4 - Td or Tdap) 07/02/2034 07/02/2024, 06/05/2023, 09/26/2017 Gonorrhea / Chlamydia Screen Discontinued 02/16/2024, 01/10/2023, 08/07/2021, Additional history exists HPV (Gardasil) Vaccine Aged Out No lo nger eligible based on patient's age to complete this topic MENINGOCOCCAL (MENACTRA/MENVEO) Aged Out No longer eligible based on patient's age to complete this topic Meningitis B Vaccine (Bexsero/Trumemba) Aged Out No longer eligible based on patient's age to complete this topic Pneumococcal Vaccine: Pediatrics (0 to 5 Years) and At-Risk Patients (6 to 18 Years and 19+ Years) Aged Out No longer eligib le based on patient's age to complete this topic documented as of this encounter Goals Goal Patient Goal Type Associated Problems Recent Progress Patient-Stated? 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 Insulin controlled gestational diabetes mellitus (GDM) during Supervision of high risk in second trimester- Primary Unspecified high-risk 14 weeks gestation of state, incidental Gestational diabetes mellitus (GDM) in second trimester, gestational diabetes method of control unspecified Obesity in Obesity complicating , childbirth, or the puerperium, unspecified as to episode of care or not applicable History of gestational diabetes mellitus (GDM) Short interval between pregnancies complicating , antepartum Supervision of other high-risk Diet controlled gestational diabetes mellitus (GDM) in second trimester- Primary Encounter for anatomic survey 22 weeks gestation of state, incidental Obesity in Obesity complicating , childbirth, or the puerperium, unspecified as to episode of care or not applicable Obesity in - Primary Obesity complicating , childbirth, or the puerperium, unspecified as to episode of care or not applicable Diet controlled gestational diabetes mellitus (GDM) in third trimester Ultrasound for screening for growth restriction screening for growth retardation using ultrasonics 28 weeks gestation of state, incidental Obesity in - Primary Obesity complicating , childbirth, or the puerperium, unspecified as to episode of care or not applicable Insulin controlled gestational diabetes mellitus (GDM) in third trimester Ultrasound for screening for growth restriction screening for growth retardation using ultrasonics 32 weeks gestation of state, incidental High-risk , third trimester- Primary Rh negative, antepartum Rhesus isoimmunization affecting management of mother, antepartum condition Carrier of group B Streptococcus Carrier or suspected carrier of Group B streptococcus Obesity in Obesity complicating , childbirth, or the puerperium, unspecified as to episode of care or not applicable Short interval between pregnancies complicating , antepartum Supervision of other high-risk Insulin controlled gestational diabetes mellitus (GDM) in third trimester Antepartum anemia complicating Anemia, antepartum COVID-19 affecting in third trimester documented in this encounter Additional Health Concerns Active Problems Noted Date Diagnosed Date OB Reminders 02/16/2024 documented as of this encounter
--- OUTSIDE RECORDS SUMMARY | 2024-09-16 11:59 | External Medical Summary ---
Author Name Unknown Address Unknown Organization [id number] [facility] [address] [place] [address] Laboratory Report Ordering Provider Test Date Status LEIDA TRACEY 09/15/2024 14:13:31 Final Observation Date Value Abnormality Reference (Units ) Status SARS Coronavirus 2 09/15/2024 14:13:31 Negative N egative Final No SARS-CoV2 Coronavirus RNA detected by PCR (amplified probe).
This express test was developed and its performance characteristics determined by [facility]. It has not been cleared or approved by the U.S. Food and Drug Administration (FDA). FDA does not require this test to go thru premarket FDA review. This test is used for clinical purposes. It should not be regarded as investigational or for research. This laboratory is certified under the Clinical Laboratory Improvement Amendments (CLIA) as qualified to perform high complexity clinical laboratory testing.

This test is a nucleic acid amplification test (NAAT), a reverse transcriptase polymerase chain reaction (RT-PCR) test, or a Centers for Disease Control-acceptable equivalent. The test is performed in a high complexity Clinical Laboratory Improvement Amendments-(CLIA) certified laboratory. The test is acceptable for SARS-CoV-2 diagnosis, surveillance, and travel within the [place] and to most countries. Please check with local testing authorities about requirements before travel.

The validation of bronchial specimens, tracheal aspirates, and sputum for this assay was developed and performance characteristics determined by [facility]. The validation of alternate specimen types has not been cleared or approved by the U.S. Food and Drug Administration (FDA). It has been determined that such clearance is not necessary. Influenza virus A RNA [Prese nce] in Specimen by DENG with probe detection 09/15/2024 14:13:31 Negative Negative Final No Influenza A RNA detected by PCR (amplified probe) Influenza virus B RNA [Prese nce] in Specimen by DENG with probe detection 09/15/2024 14:13:31 Negative Negative Final No Influenza B RNA detected by PCR (amplified probe) Respiratory syncytial virus RNA [Identifier] in Specimen by DENG with probe detection 09/15/2024 14:13:31 Negative Negative Final No Respiratory Syncytial Vir us RNA detected by PCR (amplified probe) Performing Location [facility] [place] [address]
--- OUTSIDE RECORDS SUMMARY | 2024-09-16 11:59 | External Medical Summary | Summary of Care ---
Author Name Unknown Organization [facility] Address [address] [facility] [place] [address] Phone [phone] Care Team Providers Care Trim Carpenter Name Role Phone Unavailable Primary Care Provider Unavailabl e Reason for Visit * Reason Comments Non Stress Test Encounter Details Date Type Department Care Team (Late st Contact Info) Description 09/14/2024 9:30 AM EDT Office Visit Gynecology/Obstetric s [place] [address] [place] [address] Juliette Mendoza CRNP [address] [place] [address] [place] Non Stress Tests [facility] [address] [place] [address] High-risk , third trimester*; Rh negative, antepartum; Carrier of group B Streptococcus; Obesity in ; Short interval between pregnancies complicating , antepartum; Insulin controlled gestational diabetes mellitus (GDM) in third trimester; Antepartum anemia complicating ; COVID-19 affecting in third trimester Allergies No known active allergiesdocumented as of this encounter (statuses as of 09/14/2024) Medications Plus 27-1 MG Oral TabletIndications :Normal in first trimester Take 1 Tablet by mouth in the morning. 100 Tablet 3 07/04/2023 11:02 AM EST 07/21/202 3 Active OneTouch Verio w/Device KitIndications:Hi story of gestational diabetes mellitus (GDM),Encounter for supervision of other normal in first trimester Use as directed. For testing blood sugar 4 times a day (fasting, and 1 hour after each meal - breakfast, lunch, dinner). 1 Kit 03/03/2024 12:34 PM EDT 4 Active OneTouch Verio In Vitro Strip (Glucose Blood)Indications :History of gestational diabetes mellitus (GDM),Encounter for supervision of other normal in first trimester For testing blood sugar 4 times a day (fasting, and 1 hour after each meal - breakfast, lunch, dinner). 400 Strip 1 04/09/2024 5:51 PM EDT 4 Active LancetsIndication s:History of gestational diabetes mellitus (GDM),Encounter for supervision of other normal in first trimester For testing blood sugar 4 times a day (fasting, and 1 hour after each meal - breakfast, lunch, dinner). 400 Each 1 4 Active LancetsIndication s:History of gestational diabetes mellitus (GDM),Encounter for supervision of other normal in first trimester For testing blood sugar 4 times a day (fasting, and 1 hour after each meal - breakfast, lunch, dinner). 100 Each 1 04/13/2024 9:20 AM EDT 4 Active BD Pen Needle Mini U/F 31G X 5 MM (Insulin Pen Needle)Indication s:Insulin controlled gestational diabetes mellitus (GDM) in second trimester Use to inject insulin once daily. 100 Each 3 05/18/2024 3:22 PM EST 4 Active Insulin Glargine Solostar 100 UNIT/ML Subcutaneous Solution Pen-injector (Lantus SoloStar)Indicati ons:Insulin controlled gestational diabetes mellitus (GDM) in second trimester Inject 12 Units under the skin at bedtime. Take with bedtime snack. 15 mL 3 05/21/2024 12:04 PM EST 4 Active Iron-Vitamin C 65-125 MG Oral Tablet (Vitron C)Indications:Ant epartum anemia complicating Take 1 Tablet by mouth in the morning. 60 Tablet 3 07/05/2024 3:57 PM EST 5 Active Breast Pump Dispense double electric breast pump. Dx:Z39.1 1 Each 5 Active documented as of this encounter (statuses as of 09/14/2024) Active Problems Problem Noted Date Diagnosed Date COVID-19 affecting in third trimester 08/06/2024 Overview (08/06/2024): + test 07/16/24 Antepartum anemia complicating 025 GDM (gestational diabetes mellitus) 03/26/2024 Overview (09/13/2024): Diagnosed at 14 weeks via home glucose [...] snack of 30g CHO paired with protein 04/19/20245937-MDT-vorq message to update numbers since AD[facility]T appointment on 04/16. 04/22/20243803-UBF-jlmdssvu past 3 days; overall stable. 04/26/20242039-WME-pxvozog reporting. Sent message to update numbers 05/03/20244071-QBD-sqhq limited reported values. 2 of 2 elevated fasting blood sugars. Patient and [facility] PARs messaged to schedule follow up ADAPT appointment. 05/10/20249032-JZX-nqyshdnf one number in the past week. Sent [...] ADAPT on 05/18/24 @ 12:50 as scheduled 05/17/20244569-YQM-xqgrnohk fasting blood sugars. Reports just started insulin 05/15/2024 at night. Has follow up ADAPT appointment scheduled tomorrow. 05/18/20246678-EVC-jqlqaxi had to cancel her follow up ADAPT [...] update blood sugars in [facility] 05/31/20244192-FCA-nosrhgek 5 days in the past week; stable 06/07/20246375-BQB-shjytn 06/14/24: RPM reviewed; stable 06/21/20242870-REX-zxk not report 06/14 through 06/19; sent message asking her to update values. 06/24/20241884-OBM-ixkakkgu 3 of the past 4 days; stable 06/28/20246273-LCJ-ppc not reported in past 3 days. Sent message to be consistent with testing/reporting. Will schedule follow up ADAPT next week if continues to not report regularly 07/01/20240120-KLI-olx reported past 3 days. Overall stable (< 50% elevated) 07/07/20240714-QZH-fgqwdncq 4 of the past 6 days. Stable (1 elevated fasting blood sugar) 07/13/20249603-LTK-bftubix stable (< 50% elevated) 07/19/20243965-KGI-wfoxehe reporting (what is reported is within normal limits). Sent message stating she had COVID and was focused on resting and staying hydrated rather than testing sugars. Reports will get "back on track" this week. 07/26/20249796-DGP-dlsijvdx 2 days in the past week. Sent message to update missed days for review. 08/02/20243242-GPF-zjixkdtr 2/7, 2/9, and two values today. Stable 08/09/24: RPM reviewed; only reported one day; asked for updated blood sugars 08/16/24: RPM reviewed - no blood sugars reported; will ask patient to update and will offer ADAPT visit 08/20/20241408-KLQ-wqsbqtrq 08/16 to 08/19; stable 08/23/20246202-BVP-npoefi 08/30/20241963-TCC-criulmyd 5 of 7 days in the past week; overall stable (< 50% elevated) 09/06/20241468-ZQP-hojtbvru 3 days in the past week. Sent message to be consistent with testing and reporting. 09/13/20243083-OGO-rrx not reported any blood sugars since 09/03/2024. Sent message to patient and [facility] to schedule follow up ADAPT appointment to review. Assessment & Plan (07/29/2024 10:29 AM EST): [...] Recommend nutrition consult with RDN (Registered Dietitian Residential Team Leader). Lifestyle changes are also indicated including optimizing [...] as of this encounter (statuses as of 09/14/2024) Resolved Problems Problem Noted Date Diagnosed Date [...] al diabetes mellitus (GDM) during 02/13/2023 09/22/19 24 Overview (08/12/2023): Diagnosed at 13 weeks Nutrition [...] 03/14/23- FBS elevated msg sent to the [employer]ICER's 03/14/23: RPM reviewed. 11/30 FBS elevated. Increase Lantus to 15 units at bedtime --KW 03/18/23: RPM Stable; few numbers reported 03/25/23- stable Growth q4 weeks after 20 weeks, twice weekly NSTs at 32 weeks, delivery in 39th week/by KIRA 04/01/23- stable 04/08/23- stable 04/14/23-stable 04/22/23: RPM reviewed, / FBS elevated, other readings are missing. After meal values-many missing- but overall stable. Increase Lantus to 20 units at bedtime --KW 04/22/23-stable 04/29/23- stable; very few sugars reported 05/06/23- stable; few sugars reported-many missed 05/13/23-not many sugars reported some elevated- sending to [employer]ICER to review 05/13/23: RPM reviewed. Many missed [...] regarding low BS . Msg sent to [employer]PER[employer] OFFICER 07/28/23: RPM reviewed; patient has been holding [...] Results Component Value Date/Time HEMOGLOBIN A1C - JENYER 5.1 03/07/2023 10:54 AM Sugars under good control with ADAPT. Will follow for growth and plan for NSTs at 32 weeks. Questions answered. Assessment & Plan (02/27/2023 5:02 PM EDT): Working with [facility]. Assessment & Plan (02/21/2023 10:51 AM EDT): [...] Recommend nutrition consult with RDN (Registered Dietitian Residential Team Leader). Lifestyle changes are also indicated including optimizing [...] , normal first 03/31/201710/21 Overview (10/30/2017): [facility]ires [facility] . Need for rhogam due to Rh negative mother 03/31/2017 11/07/2017 Overview (10/30/2017): Rhogam candidate Rhogam given 08/27/2017 documented as of this encounter (statuses as of 09/14/2024) Immunizations Name Administration Dates Next Due PPD [...] money to get more. Never true 01/23/2024 Morral Depression Scale Answer Date Recorded Morral Depression Scale Total 2 08/26/2024 The thought [...] No 01/23/2024 Does the household have a [facility] source [facility]? 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 Not on file Not on file documented as of this encounter Last Filed Vital Signs Vital Sign Reading Time Taken Comments Blood Pressure 120/80 09/14/2024 9:44 AM EDT Pulse - - Temperature - - Respiratory Rate - - Oxygen Saturation - - Inhaled Oxygen Concentration - - Weight 103.9 kg (229 lb) 09/14/2024 9:44 AM EDT Height - - Body Mass Index 38.11 09/03/2024 10:02 AM EDT documented in this encounter Progress Notes * Juliette Mendoza CRNP - 09/14/2024 9:50 AM EDT ASSESSMENT assessment with Non-stress Test completed on 09/14/2024 at 38.6weeks gestation for indication of gestational diabetes mellitus heart baseline: 150 bpm Variability: Moderate Decelerations: absent Accelerations: present Contractions: None NST start time: 0941 NST stop time: 1004 NST strip reviewed, interpreted, and approved by OB provider, DELIO Mejia . NST strip stored in clinic storage file * Maki Oates CMA - 09/14/2024 9:44 AM EDT 38w6d Denies any concerns Occasional cramping documented in this encounter Plan of Treatment Upcoming Encounters Date Type Department Care Team (Late st Contact Info) Description 09/15/2024 12:20 PM EDT Office Visit Family Practice [facility] [address] [id number] Jimmie Peguero MD [address] [place] [id number] Health Maintenance Due Date Last Done Comments Hepatitis B Vaccine (1 of 3 - 19+ 3-dose series) 11/15/2015 Depression Monitoring 01/24/2022 01/24/2021 COVID-19 Vaccine ( season) 2024 Influenza Vaccine (FLU shot) (#1) [...] Author Reminders Care Plan OB Reminders No Jaket, Provider documented as of this encounter Medical [...]
--- OUTSIDE RECORDS SUMMARY | 2024-09-16 11:59 | External Medical Summary | Summary of Care ---
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 Name Role Phone Unavailable Primary Care Provider Unavailabl e Reason for Visit * Reason Comments Return Visit Encounter Details Date Type Department Care Team (Late st Contact Info) Description 09/07/2024 9:30 AM EDT Office Visit Gynecology/Obstetric s [facility] [address] [place] [address] Juliette Mendoza CRNP [address] [place] [id number] [place], Non Stress Tests [facility] [address] [place] [address] High-risk , third trimester*; Carrier of group B Streptococcus; Obesity in ; Short interval between pregnancies complicating , antepartum; Antepartum anemia complicating ; Rh negative, antepartum; COVID-19 affecting in third trimester; Insulin controlled gestational diabetes mellitus (GDM) in third trimester Allergies No known active allergiesdocumented as of this encounter (statuses as of 09/07/2024) Medications Plus 27-1 MG Oral TabletIndications :Normal [...] as of this encounter (statuses as of 09/07/2024) Active Problems Problem Noted Date Diagnosed Date COVID-19 affecting in third trimester 08/06/2024 Overview (08/06/2024): + test 07/16/24 Antepartum anemia complicating 025 GDM (gestational diabetes mellitus) 03/26/2024 Overview (09/06/2024): Diagnosed at 14 weeks via home glucose [...] snack of 30g CHO paired with protein 04/19/20244356-HPW-ivsl message to update numbers since ADAPT appointment on 04/16. 04/22/20240843-WEQ-thpixeuh past 3 days; overall stable. 04/26/20246945-HAW-naulurn reporting. Sent message to update numbers 05/03/20240126-YIY-iggx limited reported values. 2 of 2 elevated fasting blood sugars. Patient and C PARs messaged to schedule follow up ADAPT appointment. 05/10/20248385-YYR-rswkczhi one number in the past week. Sent [...] ADAPT on 05/18/24 @ 12:50 as scheduled 05/17/20240788-UJX-skyrpwpj fasting blood sugars. Reports just started insulin 05/15/2024 at night. Has follow up ADAPT appointment scheduled tomorrow. 05/18/20249495-MTB-lktrdhl had to cancel her follow up ADAPT [...] update blood sugars in [facility] Robert 05/31/20240438-TYQ-lvghysdw 5 days in the past week; stable 06/07/20243323-PCN-dsgtkn 06/14/24: RPM reviewed; stable 06/21/20245716-ETS-evu not report 06/14 through 06/19; sent message asking her to update values. 06/24/20242212-PUS-dkfsispq 3 of the past 4 days; stable 06/28/20246016-HDM-egt not reported in past 3 days. Sent message to be consistent with testing/reporting. Will schedule follow up ADAPT next week if continues to not report regularly 07/01/20249821-PXY-jpu reported past 3 days. Overall stable (< 50% elevated) 07/07/20243402-GSW-toskjjeh 4 of the past 6 days. Stable (1 elevated fasting blood sugar) 07/13/20240942-NCB-xfhncdo stable (< 50% elevated) 07/19/20241379-OUR-pdvgdeh reporting (what is reported is within normal limits). Sent message stating she had COVID and was focused on resting and staying hydrated rather than testing sugars. Reports will get "back on track" this week. 07/26/20240163-TMH-capmnwyo 2 days in the past week. Sent message to update missed days for review. 08/02/20244105-RRK-ruwdmswl 2/7, 2/9, and two values today. Stable 08/09/24: RPM reviewed; only reported one day; asked for updated blood sugars 08/16/24: RPM reviewed - no blood sugars reported; will ask patient to update and will offer ADAPT visit 08/20/20241725-IWG-vrucgfkv 08/16 to 08/19; stable 08/23/20247745-RWZ-ytiave 08/30/20246810-VLQ-syndpzyl 5 of 7 days in the past week; overall stable (< 50% elevated) 09/06/20240761-ZCW-liffefvw 3 days in the past week. Sent message to be consistent with testing and reporting. Assessment & Plan (07/29/2024 10:29 AM EST): [...] Recommend nutrition consult with RDN (Registered Dietitian Coremaker Bench). Lifestyle changes are also indicated including optimizing [...] as of this encounter (statuses as of 09/07/2024) Resolved Problems Problem Noted Date Diagnosed Date [...] 02/25/23: MFM ADAPT consult complete. Enrolled in [facility]. Instructions provided to report blood sugars [...] 03/14/23- FBS elevated msg sent to the UX DESIGN MANAGER's 03/14/23: RPM reviewed. 11/30 FBS elevated. Increase [...] many sugars reported some elevated- sending to UX DESIGN MANAGER to review 05/13/23: RPM reviewed. Many missed [...] regarding low BS . Msg sent to UX DESIGN MANAGER 07/28/23: RPM reviewed; patient has been holding [...] Recommend nutrition consult with RDN (Registered Dietitian Coremaker Bench). Lifestyle changes are also indicated including optimizing [...] , normal first 03/31/201710/21 Overview (10/30/2017): Desires [facility] . Need for rhogam due to Rh negative mother 03/31/2017 11/07/2017 Overview (10/30/2017): Rhogam candidate Rhogam given 08/27/2017 documented as of this encounter (statuses as of 09/07/2024) Immunizations Name Administration Dates Next Due PPD 04/01/2016 TDAP (age 10 and older)(Boostrix) 06/05/2023,11/2017 TDAP, Age 7 and older, IM (Adacel) 07/02/2024 documented as of this encounter Social History Tobacco Use Types Packs/Day Years Used Date Smoking Tobacco: Former Cigarettes 0.1 1 2 - 2016 Smokeless Tobacco: Never Alcohol Use [...] money to get more. Never true 01/23/2024 Ripley Depression Scale Answer Date Recorded Ripley Depression Scale Total 2 08/26/2024 The thought [...] No 01/23/2024 Does the household have a [facility] source of income? 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 Has a sick child at home, hasn't been good at checking blood sugars this week. Rehab Assistant Documentation Provider requested administrative intern. Name of administrative intern: Maki ASSESSMENT assessment with Non-stress Test completed on 09/07/2024 at 37.6weeks gestation for indication of gestational diabetes mellitus heart baseline: 150 bpm Variability: Moderate Decelerations: absent Accelerations: present Contractions: None NST start time: 0830 NST stop time: 0854 NST strip reviewed, interpreted, and approved by OB providerJuliette CRNP . NST strip stored in clinic storage file * Maki Oates CMA - 09/07/2024 9:48 AM EDT 37w6d + cramping Requesting cervical check documented in this encounter Plan of Treatment Upcoming Encounters Date Type Department Care Team (Late st Contact Info) Description 09/10/2024 10:00 AM EDT Office Visit Gynecology/Obstetrics [place] [facility] [address] [place] [address] Juliette Mendoza CRNP [address] [place] [address] [place] [facility] Stress [facility] [address] [address] 09/14/2024 9:30 AM EDT Office Visit Gynecology/Obstetrics [place] [facility] [address] [place], [place] [address] Juliette Mendoza CRNP [address] [place] [address] [place] Non Stress Tests [facility] [address] [place], [place] [address] 09/17/2024 10:00 AM EDT Office Visit Gynecology/Obstetrics [place] [address] [place] [address] Juliette Mendoza CRNP [address] [place] [address] [place] [facility] Stress [facility] [address] [place] [address] Health Maintenance Due Date Last Done Comments [...] state, incidental High-risk , third trimester- Primary Carrier of group B Streptococcus Carrier or suspected carrier of Group B streptococcus Obesity in Obesity complicating , childbirth, or the puerperium, unspecified as to episode of care or not applicable Short interval between pregnancies complicating , antepartum Supervision of other high-risk Antepartum anemia complicating Anemia, antepartum Rh negative, antepartum Rhesus isoimmunization affecting management of mother, antepartum condition COVID-19 affecting in third trimester Insulin controlled gestational diabetes mellitus (GDM) in third trimester documented in this encounter Additional Health Concerns Active Problems Noted Date Diagnosed Date OB Reminders 02/16/2024 documented as of this encounter
--- OUTSIDE RECORDS SUMMARY | 2024-09-16 11:59 | External Medical Summary | Summary of Care ---
Author Name Unknown Organization [facility] Address [address] [place] [address] Phone [phone] Care Team Providers Care Thread Cutter Tender Name Role Phone Unavailable Primary Care Provider Unavailabl e Reason for Visit * Reason Onset Date Comments Appointment 09/14/2024 Encounter Details Date Type Department Care Team (Late st Contact Info) Description 09/14/2024 Telephone Tableau Analyst Obstetrics [facility], [place] [address] [place], [place] [id number] Mfm, Assessment Chair [address] [place] [address] Appointment Allergies No known active allergiesdocumented as of this encounter (statuses as of 09/14/2024) Medications Plus 27-1 MG Oral TabletIndications :Normal in first trimester Take 1 Tablet by mouth in the morning. 100 Tablet 3 07/04/2023 11:02 AM EST 3 Active OneTouch Verio w/Device KitIndications:Hi story [...] 7 elevated fasting blood sugars. Patient and [facility] messaged to schedule follow up ADAPT appointment. 04/16/24: Follow-up ADAPT complete; stable overall; continue diet controlled; recommend fasting 8-10 hours overnight along with having a bedtime snack of 30g CHO paired with protein 04/19/20246341-RGP-wvmx message to update numbers since ADAPT appointment on 04/16. 04/22/20249620-OJD-euevtguc past 3 days; overall stable. 04/26/20249213-BFG-rowutxb reporting. Sent message to update numbers 05/03/20249487-EVF-zgrk limited reported values. 2 of 2 elevated fasting blood sugars. Patient and [facility] messaged to schedule follow up ADAPT appointment. 05/10/20248565-LTU-nikwcfjj one number in the past week. Sent message to patient reminding her of follow up ADAPT appointment today at 1230 and to have last week of sugars available for review. 05/10/24: Follow-up ADAPT visit complete; minimal testing and only 2 blood sugars to review; F/U ADAPT scheduled 05/18/24 @ 12:50PM 05/13/24: RPM reviewed; patient reporting blood sugars in CH since last visit; fasting elevations noted; messaged patient about considering starting medication 05/14/24: RPM reviewed; elevated FBS; as discussed with patient on 05/10, medication would be recommend pending blood sugar review; patient agreeable to insulin, she took in last and is comfortable with insulin administration; ordered Lantus 10 units at bedtime; encouraged patient to keep F/U ADAPT on 05/18/24 @ 12:50 as scheduled 05/17/20240503-TSU-wxjhkkqs fasting blood sugars. Reports just started insulin 05/15/2024 at night. Has follow up ADAPT appointment scheduled tomorrow. 05/18/20246744-SEJ-iazqfyf had to cancel her follow up ADAPT [...] update blood sugars in [facility] Robert 05/31/20243818-BCC-ybwavzol 5 days in the past week; stable 06/07/20247866-FWP-ixsrqg 06/14/24: RPM reviewed; stable 06/21/20241329-KIS-spt not report 06/14 through 06/19; sent message asking her to update values. 06/24/20242495-DBW-qisnpomp 3 of the past 4 days; stable 06/28/20243249-IBP-qsb not reported in past 3 days. Sent message to be consistent with testing/reporting. Will schedule follow up ADAPT next week if continues to not report regularly 07/01/20241040-IPR-qsl reported past 3 days. Overall stable (< 50% elevated) 07/07/20242760-UUA-rdeatzrx 4 of the past 6 days. Stable (1 elevated fasting blood sugar) 07/13/20248779-BJX-pyitxay stable (< 50% elevated) 07/19/20249253-IFZ-bxavobk reporting (what is reported is within normal limits). Sent message stating she had COVID and was focused on resting and staying hydrated rather than testing sugars. Reports will get "back on track" this week. 07/26/20248463-OEL-pjujfqul 2 days in the past week. Sent message to update missed days for review. 08/02/20248165-HFU-oomfynql 2/7, 2/9, and two values today. Stable 08/09/24: RPM reviewed; only reported one day; asked for updated blood sugars 08/16/24: RPM reviewed - no blood sugars reported; will ask patient to update and will offer ADAPT visit 08/20/20242123-BYE-dxuzvcal 08/16 to 08/19; stable 08/23/20241444-QIR-hlmiwp 08/30/20246393-DMZ-ssfkgict 5 of 7 days in the past week; overall stable (< 50% elevated) 09/06/20241011-BZK-bilkjegt 3 days in the past week. Sent message to be consistent with testing and reporting. 09/13/20240351-AKB-lnd not reported any blood sugars since 09/03/2024. Sent message to patient and C PARs to schedule follow up ADAPT appointment [...] Recommend nutrition consult with RDN (Registered Dietitian It Instructor). Lifestyle changes are also indicated including optimizing [...] 03/14/23- FBS elevated msg sent to the MATERIAL MOVERS's 03/14/23: RPM reviewed. 11/30 FBS elevated. Increase [...] many sugars reported some elevated- sending to MATERIAL MOVERS to review 05/13/23: RPM reviewed. Many missed [...] regarding low BS . Msg sent to MATERIAL MOVERS 07/28/23: RPM reviewed; patient has been holding [...] Results Component Value Date/Time HEMOGLOBIN A1C - ISINGER 5.1 03/07/2023 10:54 AM Sugars under good [...] Recommend nutrition consult with RDN (Registered Dietitian It Instructor). Lifestyle changes are also indicated including optimizing [...] , normal first 03/31/201710/21 Overview (10/30/2017): Desires [facility] . Need for rhogam due to Rh [...] Smoking Tobacco: Former Cigarettes 0.1 1 2 2016 Smokeless Tobacco: Never Alcohol Use Standard [...] money to get more. Never true 01/23/2024 Garner Depression Scale Answer Date Recorded Garner Depression Scale Total 2 08/26/2024 The thought [...] No 01/23/2024 Does the household have a [facility] source of income? 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 * Telephone Encounter - Anai Reddy OSA - 09/14/2024 11:19 AM EDT Images from the original note were not included. please schedule pt for f/u adapt appt-thanks Received: Yesterday Darshan Feliciano, RN P [facility] Referral Scheduling Pool/Clas documented in this encounter Plan of Treatment Upcoming Encounters Date Type Department Care Team (Late st Contact Info) Description 09/15/2024 12:20 PM EDT Office Visit [facility] [address] [place] [address] Jimmie Peguero MD [address] [place] [address] Health Maintenance Due Date Last Done Comments [...] Author Reminders Care Plan OB Reminders No Kinjal, Provider documented as of this encounter Medical Devices Not on filedocumented as of this encounter Additional Health Concerns Active Problems Noted Date Diagnosed Date OB Reminders 02/16/2024 documented as of this encounter
--- OUTSIDE RECORDS SUMMARY | 2024-09-16 11:59 | External Medical Summary | Summary of Care ---
Author Name Unknown Organization [facility] Address [address] [facility] [address] Phone [phone] Care Team Providers Care Airplane Tester Name Role Phone Jimmie Peguero MD Primary Care Provider [phone] Encounter Details Date Type Department Care Team (Late st Contact Info) Description 09/01/2024 Result Scan Unspecified Department <No scans attached> Allergies No known active allergiesdocumented as of [...] 3 07/05/2024 3:57 PM EST 5 Active documented as of this encounter [...] 7 elevated fasting blood sugars. Patient and [facility] PARs messaged to schedule follow up ADAPT appointment. 04/16/24: Follow-up ADAPT complete; stable overall; continue diet controlled; recommend fasting 8-10 hours overnight along with having a bedtime snack of 30g CHO paired with protein 04/19/20241821-CVR-erqv message to update numbers since ADAPT appointment on 04/16. 04/22/20243777-ZFK-ujmmborx past 3 days; overall stable. 04/26/20249811-VQH-xjimogv reporting. Sent message to update numbers 05/03/20247213-JBG-cnut limited reported values. 2 of 2 elevated fasting blood sugars. Patient and [facility] PARs messaged to schedule follow up ADAPT appointment. 05/10/20244405-RFZ-ngbhofgu one number in the past week. Sent [...] ADAPT on 05/18/24 @ 12:50 as scheduled 05/17/20245004-JJE-vcdwlmeu fasting blood sugars. Reports just started insulin 05/15/2024 at night. Has follow up ADAPT appointment scheduled tomorrow. 05/18/20240174-IRY-txesqrs had to cancel her follow up ADAPT [...] update blood sugars in Current [facility] Robert 05/31/20242723-TOM-odxplwjx 5 days in the past week; stable 06/07/20248878-TUJ-lddnpz 06/14/24: RPM reviewed; stable 06/21/20245918-FWL-bph not report 06/14 through 06/19; sent message asking her to update values. 06/24/20246553-NEE-idqtdbbb 3 of the past 4 days; stable 06/28/20249379-CET-och not reported in past 3 days. Sent message to be consistent with testing/reporting. Will schedule follow up ADAPT next week if continues to not report regularly 07/01/20243370-ZHB-klo reported past 3 days. Overall stable (< 50% elevated) 07/07/20247750-WHP-ugpahwsn 4 of the past 6 days. Stable (1 elevated fasting blood sugar) 07/13/20246891-QYC-mtdrsfs stable (< 50% elevated) 07/19/20242469-LGB-ubzwxnx reporting (what is reported is within normal limits). Sent message stating she had COVID and was focused on resting and staying hydrated rather than testing sugars. Reports will get "back on track" this week. 07/26/20241098-LEM-ijezgdrr 2 days in the past week. Sent message to update missed days for review. 08/02/20247462-AYU-gdyohyyu 2/7, 2/9, and two values today. Stable 08/09/24: RPM reviewed; only reported one day; asked for updated blood sugars 08/16/24: RPM reviewed - no blood sugars reported; will ask patient to update and will offer ADAPT visit 08/20/20241414-KKM-phsfjnko 08/16 to 08/19; stable 08/23/20245230-RTJ-btphyc 08/30/20245253-MHK-ubaxziuo 5 of 7 days in the past week; overall stable (< 50% elevated) 09/06/20241595-FRD-xbubhijt 3 days in the past week. Sent [...] Recommend nutrition consult with RDN (Registered Dietitian Alumni Secretary). Lifestyle changes are also indicated including optimizing [...] = 10PM; wake up = 645AM 02/25/23: M ADAPT consult complete. Enrolled in [facility]. [...] 03/14/23- FBS elevated msg sent to the PERFORMANCE ANALYST's 03/14/23: RPM reviewed. 11/30 FBS elevated. Increase Lantus to 15 units at bedtime --KW 03/18/23: RPM Stable; few numbers reported 03/25/23- stable Growth q4 weeks after 20 weeks, twice weekly NSTs at 32 weeks, delivery in /by [facility] 04/01/23- stable 04/08/23- stable 04/14/23-stable 04/22/23: RPM reviewed, 12/01 FBS elevated, other readings are missing. After meal values-many missing- but overall stable. Increase Lantus to 20 units at bedtime --KW 04/22/23-stable 04/29/23- stable; very few sugars reported 05/06/23- stable; few sugars reported-many missed 05/13/23-not many sugars reported some elevated- sending to PERFORMANCE ANALYST to review 05/13/23: RPM reviewed. Many missed [...] regarding low BS . Msg sent to PERFORMANCE ANALYST 07/28/23: RPM reviewed; patient has been holding [...] Recommend nutrition consult with RDN (Registered Dietitian Alumni Secretary). Lifestyle changes are also indicated including optimizing [...] , normal first 03/31/201710/21 Overview (10/30/2017): Desires [facility] . Need for rhogam due to Rh [...] money to get more. Never true 01/23/2024 Perry Depression Scale Answer Date Recorded Perry Depression Scale Total 2 08/26/2024 The thought [...] No 01/23/2024 Does the household have a re gular source of income? 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 file Not on file Not on file documented as of this encounter Plan of Treatment Upcoming Encounters Date Type Department Care Team (Late st Contact Info) Description 09/07/2024 9:30 AM EDT Office Visit Gynecology/Obstetrics [facility] [facility] [address] [address] Juliette Mendoza CRNP [address] [place] [address] [place] Non Stress Tests [facility] [address] [address] 09/10/2024 10:00 AM EDT Office Visit Gynecology/Obstetrics [place] [facility] [address] [address] Juliette Mendoza CRNP [address] [place] [address] [place] [facility] [address] [place] [address] 09/14/2024 9:30 AM EDT Office Visit Gynecology/Obstetrics [place] [facility] [address] [place] [address] Juliette Mendoza CRNP [address] [place] [address] [place] [facility] [address] [place] [address] 09/17/2024 10:00 AM EDT Office Visit Gynecology/Obstetrics [facility] [facility] [address] [place] [address] Juliette Mendoza CRNP [address] [place] [address] [place] [facility] [address] [place] [address] Health Maintenance Due Date Last Done Comments Hepatitis B Vaccine (1 of 3 - 19+ 3-dose series) 11/15/2015 Depression Monitoring 01/24/2022 01/24/2021 COVID-19 Vaccine ( - 2023- season) 2024 Influenza Vaccine (FLU shot) (#1) [...] Not on filedocumented as of this encounter Procedures Procedure Name Priority Date/Time Associated Diagnosis Comments OUTSIDE LAB RESULTS 09/01/2024 documented in this encounter Results * OUTSIDE LAB RESULTS (09/01/2024) 09/01/2024 No Physician Data Unknown LABORATORY Final Result documented in this encounter Additional Health Concerns Active Problems Noted Date Diagnosed Date OB Reminders 02/16/2024 documented as of this encounter Care Teams Airplane Tester Relationship Specialty Start Date End Date Jimmie Peguero MD [address] [place] [address] PCP - General Family Medicine 06/09/19 09/01/24 documented as of this encounter
--- OUTSIDE RECORDS SUMMARY | 2024-09-16 11:59 | External Medical Summary | Summary of Care ---
Author Name Unknown Organization [facility] Address [address] [facility] [place] [address] Phone [phone] Care Team Providers Care Dietary Aide Teacher Name Role Phone Unavailable Primary Care Provider Unavailabl e Reason for Visit * Reason Comments Return Visit Non Stress Test Encounter Details Date Type Department Care Team (Late st Contact Info) Description 09/10/2024 10:00 AM EDT Office Visit Gynecology/Obstetric s [facility] [address] [place] [id number] Juliette Mendoza CRNP [address] [place] [address] [place], Non Stress Tests [facility] [address] [place] [address] High-risk , third trimester*; Carrier of group B Streptococcus; Obesity in ; Short interval between pregnancies complicating , antepartum; Rh negative, antepartum; Antepartum anemia complicating ; COVID-19 affecting in third trimester; Insulin controlled gestational diabetes mellitus (GDM) in third trimester Allergies No known active allergiesdocumented as of this encounter (statuses as of 09/10/2024) Medications Plus 27-1 MG Oral TabletIndications :Normal [...] as of this encounter (statuses as of 09/10/2024) Active Problems Problem Noted Date Diagnosed Date [...] snack of 30g CHO paired with protein 04/19/20241073-AFS-qoha message to update numbers since ADAPT appointment on 04/16. 04/22/20247182-HEM-ggvlsbfp past 3 days; overall stable. 04/26/20241250-AYT-skwhhrt reporting. Sent message to update numbers 05/03/20242908-ZIE-ylkz limited reported values. 2 of 2 elevated fasting blood sugars. Patient and [facility] PARs messaged to schedule follow up ADAPT appointment. 05/10/20249246-YAK-bcrzvuur one number in the past week. Sent message to patient reminding her of follow up ADAPT appointment today at 1230 and to have last week of sugars available for review. 05/10/24: Follow-up ADAPT visit complete; minimal testing and only 2 blood sugars to review; F/U ADAPT scheduled 05/18/24 @ 12:50PM 11/21/24: RPM reviewed; patient reporting blood sugars in [...] ADAPT on 05/18/24 @ 12:50 as scheduled 05/17/20248634-ZZD-ttxseikn fasting blood sugars. Reports just started insulin 05/15/2024 at night. Has follow up ADAPT appointment scheduled tomorrow. 05/18/20247317-KHL-cwypcol had to cancel her follow up ADAPT [...] update blood sugars in [facility] 05/31/20243111-DQD-zgohbuce 5 days in the past week; stable 06/07/20243776-BLD-ftijit 06/14/24: RPM reviewed; stable 06/21/20244972-GQC-wuh not report 06/14 through 06/19; sent message asking her to update values. 06/24/20242424-UVZ-nynvqctb 3 of the past 4 days; stable 06/28/20249074-LOM-qhi not reported in past 3 days. Sent message to be consistent with testing/reporting. Will schedule follow up ADAPT next week if continues to not report regularly 07/01/20246808-BPP-aez reported past 3 days. Overall stable (< 50% elevated) 07/07/20244905-WMR-wenqzwnq 4 of the past 6 days. Stable (1 elevated fasting blood sugar) 07/13/20245970-GWF-hafykzs stable (< 50% elevated) 07/19/20242633-DRM-hqmjymu reporting (what is reported is within normal limits). Sent message stating she had COVID and was focused on resting and staying hydrated rather than testing sugars. Reports will get "back on track" this week. 07/26/20248925-VLJ-qlvduktn 2 days in the past week. Sent message to update missed days for review. 08/02/20242233-VLE-gxtkqzrs 2/7, 2/9, and two values today. Stable 08/09/24: RPM reviewed; only reported one day; asked for updated blood sugars 08/16/24: RPM reviewed - no blood sugars reported; will ask patient to update and will offer ADAPT visit 08/20/20247021-UBQ-knikyfhg 08/16 to 08/19; stable 08/23/20247206-LDI-msdhtz 08/30/20244458-PSL-fwxkgwmz 5 of 7 days in the past week; overall stable (< 50% elevated) 09/06/20248590-NQJ-kropaudf 3 days in the past week. Sent [...] Recommend nutrition consult with RDN (Registered Dietitian Irrigator Sprinkling System). Lifestyle changes are also indicated including optimizing [...] as of this encounter (statuses as of 09/10/2024) Resolved Problems Problem Noted Date Diagnosed Date [...] 03/14/23- FBS elevated msg sent to the MARKETING FORECASTER's 03/14/23: RPM reviewed. 11/30 FBS elevated. Increase [...] many sugars reported some elevated- sending to MARKETING FORECASTER to review 05/13/23: RPM reviewed. Many missed [...] regarding low BS . Msg sent to MARKETING FORECASTER 07/28/23: RPM reviewed; patient has been holding [...] Recommend nutrition consult with RDN (Registered Dietitian Irrigator Sprinkling System). Lifestyle changes are also indicated including optimizing [...] protocol. Pt given VIS(vaccine information sheet) Kaelyn L Breezy, DRIVER LICENSE TECHNICIAN Obesity in , antepartum 01/10/2023 09/22/2023 Overview [...] , normal first 03/31/201710/21 Overview (10/30/2017): Desires [facility] . Need for rhogam due to Rh negative mother 03/31/2017 11/07/2017 Overview (10/30/2017): Rhogam candidate Rhogam given 08/27/2017 documented as of this encounter (statuses as of 09/10/2024) Immunizations Name Administration Dates Next Due PPD [...] money to get more. Never true 01/23/2024 [place] Depression Scale Answer Date Recorded [place] Depression Scale Total 2 08/26/2024 The thought [...] No 01/23/2024 Does the household have a [facility] source of income? 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 Pt starting to feel sick. Reminded of infomration in booklet given at NO[facility] with recommendations of meds/therapies safe in - call with additional questions or concerns. Reminded to not bring any sick children to the hospital. ASSESSMENT assessment with Non-stress Test completed on 09/10/2024 at 38.2weeks gestation for indication of gestational diabetes mellitus heart baseline: 140 bpm Variability: Moderate Decelerations: absent Accelerations: present Contractions: None NST start time: 1351 (time stamp on EFM does not match actual hour of day) NST stop time: 1420 NST strip reviewed, interpreted, and approved by OB provider, DELIO Mejia . NST strip stored in clinic storage file * Maki Oates CMA - 09/10/2024 10:09 AM EDT 38w2d Child tested positive for RSV and FLU-A. Worried about going into labor at this point. documented in this encounter Plan of Treatment Upcoming Encounters Date Type Department Care Team (Late st Contact Info) Description 09/14/2024 9:30 AM EDT Office Visit Gynecology/Obstetrics [facility] [address] [place] [address] Juliette Mendoza CRNP [address] [place] [address] [place], Non Stress Tests [facility] [address] [place] [address] 09/17/2024 10:00 AM EDT Office Visit Gynecology/Obstetrics [facility] [facility] [address] [place] [address] Juliette Mendoza CRNP [address] [place] [address] [place], Non Stress Tests [facility] [address] [place] [address] Health Maintenance Due Date Last Done Comments [...] and 19+ Years) Aged Out No longer marahb le based on patient's age to complete [...] complicating , antepartum Supervision of other high-risk Rh negative, antepartum Rhesus isoimmunization affecting management of mother, antepartum condition Antepartum anemia complicating Anemia, antepartum COVID-19 affecting in third trimester Insulin controlled gestational diabetes mellitus (GDM) in third trimester documented in this encounter Additional Health Concerns Active Problems Noted Date Diagnosed Date OB Reminders 02/16/2024 documented as of this encounter
--- OUTSIDE RECORDS SUMMARY | 2024-09-16 11:59 | External Medical Summary | Summary of Care ---
Author Name Unknown Organization [facility] Address [address] [facility] [place] [address] Phone [phone] Care Team Providers Care Cement Contractor Name Role Phone Unavailable Primary Care Provider Unavailabl e Reason for Visit * Reason Comments Cold Symptoms Encounter Details Date Type Department Care Team (Late st Contact Info) Description 09/15/2024 12:20 PM EDT Office Visit [facility] [address] [facility] [place] [address] Jimmie Peguero MD [address] [place] [address] Viral URI with cough* Allergies No known active allergiesdocumented as of this encounter (statuses as of 09/16/2024) Medications Plus 27-1 MG Oral TabletIndications :Normal [...] as of this encounter (statuses as of 09/16/2024) Active Problems Problem Noted Date Diagnosed Date Depression with anxiety 09/14/2024 GDM (gestational diabetes mellitus) 03/26/2024 Overview (09/13/2024): [...] 7 elevated fasting blood sugars. Patient and [facility] PARs messaged to schedule follow up ADAPT appointment. 04/16/24: Follow-up ADAPT complete; stable overall; continue diet controlled; recommend fasting 8-10 hours overnight along with having a bedtime snack of 30g CHO paired with protein 04/19/20241698-BBM-bsss message to update numbers since ADAPT appointment on 04/16. 04/22/20241132-TPD-ihozvmzg past 3 days; overall stable. 04/26/20240495-LXI-ahzydxf reporting. Sent message to update numbers 05/03/20245624-TQM-fcvx limited reported values. 2 of 2 elevated fasting blood sugars. Patient and [facility] PARs messaged to schedule follow up ADAPT appointment. 05/10/20240063-TLO-xlqqijwi one number in the past week. Sent [...] ADAPT on 05/18/24 @ 12:50 as scheduled 05/17/20240139-LMK-skpljrtk fasting blood sugars. Reports just started insulin 05/15/2024 at night. Has follow up ADAPT appointment scheduled tomorrow. 05/18/20244204-SWJ-ysmpcuf had to cancel her follow up ADAPT [...] update blood sugars in [facility] 05/31/20247396-CNQ-ckkhsvot 5 days in the past week; stable 06/07/20242594-PZT-wusmyr 06/14/24: RPM reviewed; stable 06/21/20240986-CNW-mmv not report 06/14 through 06/19; sent message asking her to update values. 06/24/20240828-YQL-xhbwfqvj 3 of the past 4 days; stable 06/28/20248639-DGW-klf not reported in past 3 days. Sent message to be consistent with testing/reporting. Will schedule follow up ADAPT next week if continues to not report regularly 07/01/20241517-OMN-fgl reported past 3 days. Overall stable (< 50% elevated) 07/07/20245929-NVY-nycoojgf 4 of the past 6 days. Stable (1 elevated fasting blood sugar) 07/13/20249879-VRH-gikvfcu stable (< 50% elevated) 07/19/20248931-CWR-mrryxip reporting (what is reported is within normal limits). Sent message stating she had COVID and was focused on resting and staying hydrated rather than testing sugars. Reports will get "back on track" this week. 07/26/20246810-TOT-ywryscof 2 days in the past week. Sent message to update missed days for review. 08/02/20247238-JHV-xpvhfphm 2/7, 2/9, and two values today. Stable 08/09/24: RPM reviewed; only reported one day; asked for updated blood sugars 08/16/24: RPM reviewed - no blood sugars reported; will ask patient to update and will offer ADAPT visit 08/20/20243705-SJH-uduswmoy 08/16 to 08/19; stable 08/23/20245881-JTX-cuewfj 08/30/20244735-IUX-yqwlchdf 5 of 7 days in the past week; overall stable (< 50% elevated) 09/06/20247217-XNP-auxuwcem 3 days in the past week. Sent message to be consistent with testing and reporting. 09/13/20243559-IRS-fnv not reported any blood sugars since 09/03/2024. Sent message to patient and [facility] PARs to schedule follow up ADAPT appointment [...] Recommend nutrition consult with RDN (Registered Dietitian Wad Lubricator). Lifestyle changes are also indicated including optimizing [...] . rhogam given 06/05/2023 Kaelyn Tijerina LPN Estimated Date of Delivery Comme nts Yes 09/22/2024 Based on last me nstrual period of 12/17/2023 (Exact Date) documented as of this encounter (statuses as of 09/16/2024) Resolved Problems Problem Noted Date Diagnosed Date Resolved Date COVID-19 affecting in third trimester 08/06/2024 09/14/2024 Overview (08/06/2024): + test 07/16/24 Antepartum anemia complicating 07/05/2024 09/14/2024 History of gestational diabe weston mellitus (GDM) [...] 03/14/23- FBS elevated msg sent to the SHINGLE SHEARING MACHINE OPERATOR's 03/14/23: RPM reviewed. 11/30 FBS elevated. Increase [...] many sugars reported some elevated- sending to SHINGLE SHEARING MACHINE OPERATOR to review 05/13/23: RPM reviewed. Many missed [...] regarding low BS . Msg sent to SHINGLE SHEARING MACHINE OPERATOR 07/28/23: RPM reviewed; patient has been holding [...] Recommend nutrition consult with RDN (Registered Dietitian Wad Lubricator). Lifestyle changes are also indicated including optimizing [...] to behavioral health services as clinically indicated. Hyperhidrosis 09/28/2021 09/14/2024 GONZALO (generalized anxiety disorder) 01/24/2021 09/14/2024 Current mild episode of deo r depressive disorder 01/24/2021 09/14/2024 Fatigue 01/24/2021 07/09/2021 Supervision of normal first , antepartum 09/11/2017 04/03/2018 Overview (10/30/2017): 09/26/2017 Tdap Vaccine administered per clinic protocol. Pt given VIS(vaccine information sheet) Xin Bangura RN , normal first 03/31/201710/21 Overview (10/30/2017): Desires [facility] . Need for rhogam due to Rh negative mother 03/31/2017 11/07/2017 Overview (10/30/2017): Rhogam candidate Rhogam given 08/27/2017 documented as of this encounter (statuses as of 09/16/2024) Immunizations Name Administration Dates Next Due PPD [...] money to get more. Never true 01/23/2024 [place] Depression Scale Answer Date Recorded [place] Depression Scale Total 2 08/26/2024 The thought [...] No 01/23/2024 Does the household have a [facility] source of income? 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 Chief Complaint Patient presents with Cold Symptoms HPI: Scheduled for IOL tomorrow. Kids have RSV. She has a mild cough. Wants to be tested. I spoke with OB provider who saw her yesterday. Her exam is normal. Traveling to [place] soon and wants to know ifI will prescribe her xanax due to her fear of flying. I told her I would. Patient Active Problem List Diagnosis Rh negative, antepartum Carrier of group B Streptococcus High-risk , third trimester Obesity in Short interval between pregnancies complicating , antepartum GDM (gestational diabetes mellitus) Depression with anxiety Current Outpatient Medications Medication Sig Dispense Refill Plus 27-1 MG Oral Tablet Take 1 Tablet by mouth in the morning. 100 Tablet 3 Insulin Glargine Solostar 100 UNIT/ML Subcutaneous Solution Pen-injector (Lantus SoloStar) Inject 12 Units under the skin at bedtime. Take with bedtime snack. 15 mL 3 Iron-Vitamin C 65-125 MG Oral Tablet (Vitron C) Take 1 Tablet by mouth in the morning. 60 Tablet 3 OneTouch Verio w/Device Kit Use as directed. For testing blood sugar 4 times a day (fasting, and 1 hour after each meal - breakfast, lunch, dinner). 1 Kit 0 OneTouch Verio In Vitro Strip (Glucose Blood) For testing blood sugar 4 times a day (fasting, and 1hour after each meal - breakfast, lunch, dinner). 400 Strip 1 Lancets For testing blood sugar 4 times a day (fasting, and 1 hour after each meal - breakfast, lunch, dinner). 400 Each 1 Lancets For testing blood sugar 4 times a day (fasting, and 1 hour after each meal - breakfast, lunch, dinner). 100 Each 1 BD Pen Needle Mini U/F 31G X 5 MM (Insulin Pen Needle) Use to inject insulin once daily. 100 Each 3 Breast Pump Dispense double electric breast pump. Dx:Z39.1 1 Each 0 No current facility-administered medications for this visit. Allergy: Review of patient's allergies indicates: No Known Allergies OBJECTIVE: BP 132/78 | Pulse 72 | Temp 98.3 F (36.8 C) | Resp 18 | LMP 12/17/2023 (Exact Date) Gen: nad Lungs: ctab Heart: rrr, no mrg Abdomen: gravid ASSESSMENT AND PLAN: (J06.9) Viral URI with cough (primary encounter diagnosis) Plan: INFLUENZA A/B RSV SARS-COV2,PCR, INFLUENZA A/B RSV SARS-COV2,PCR -testing returned negative Follow up as needed. No other complaints were offered at this time. Jimmie Peguero MD documented in this encounter Nursing Notes * Keily Meek LPN - 09/15/2024 12:25 PM EDT The patient has been properly identified by confirmation of name and date of . Chief Complaint Patient presents with Cold Symptoms documented in this encounter Plan of Treatment Health Maintenance Due Date Last Done Comments [...] Procedure Name Priority Date/Time Associated Diagnosis Comments INFLUENZA A/B RSV SARS-COV2,PCR Routine 09/15/2024 2:13 PM EDT Viral URI with cough documented in this encounter Results * INFLUENZA A/B RSV SARS-COV2,PCR (09/15/2024 2:13 PM EDT) SARS-CoV-2 (COVID-19) Result Negative Negative 09/15/2024 4:59 PM EDT LAB[facility] [place] 57-10 Comment: No SARS-CoV2 Coronavirus RNA detected by PCR (amplified probe). This express test was developed and its performance characteristics determined by [facility]. It has not been cleared or approved [...] (RT-PCR) test, or a Centers for Disease Control- acceptable equivalent. The test is performed in a high complexity Clinical Laboratory Improvement Amendments-(CLIA) certified laboratory. The test is acceptable for SARS-CoV-2 diagnosis, surveillance, and travel within the [place] and to most countries. Please check with local testing authorities about requirements before travel. The validation of bronchial specimens, tracheal aspirates, and sputum for this assay was developed and performance characteristics determined by [facility]. The validation of alternate specimen types has not been cleared or approved by the U.S. Food and Drug Administration (FDA). It has been determined that such clearance is not necessary. Influenza A PCR Result Negative Negative 09/15/2024 4:59 PM EDT [facility] 57-10 Comment:No Influenza A RNA d etected by PCR (amplified probe) Influenza B PCR Result Negative Negative 09/15/2024 4:59 PM EDT [facility] [place] [facility] 57-10 Comment:No Influenza B RNA d etected by PCR (amplified probe) RSV PCR Result Negative Negative 09/15/2024 4:59 PM EDT [facility] [place] [facility] 57-10 Comment:No Respiratory Syncy tial Virus RNA detected by PCR (amplified probe) Upper Respiratory Mid-turbinate nasal swab / Unknown Non-blood Collection / Unknown 09/15/2024 2:13 PM EDT 09/15/2024 2:13 PM EDT Jimmie Peguero MD LAB MICRO - GENERAL ORDER JUAN Final Result [facility] [place] [address] [address] [place] [address] documented in this encounter Visit Diagnoses Diagnosis High-risk - [...] ultrasonics 32 weeks gestation of state, incidental Viral URI with cough- Primary Acute upper respiratory infections of unspecified site documented in this encounter Additional Health Concerns Active Problems Noted Date Diagnosed Date OB Reminders 02/16/2024 documented as of this encounter
[2024-09-16] MEDS ORDERED: SODIUM CHLORIDE 0.9% PF INJ 10 ML VIAL EPI PRN (12:10)
[2024-09-16] MEDS ORDERED: fentaNYL citrate PF 100 MCG/2 ML VIAL EPI PRN (12:10)
[2024-09-16] MEDS ORDERED: NALBUPHINE HCL INJ 10 MG/ML AMP IV PRN (12:10)
[2024-09-16] MEDS ORDERED: BUPIVACAINE 0.25% PF 30 ML VIAL EPI PRN (12:10)
[2024-09-16] MEDS ORDERED: ePHEDrine sulfate 50 MG/ML AMP IV PRN (12:10)
[2024-09-16] MEDS ORDERED: diphenhydrAMINE 50 MG/ML VIAL IV PRN (12:10)
[2024-09-16] MEDS ORDERED: fentANYL 2 MCG/ML BUPIVacaine 0.125%-NSS 100ML BAG EPI PRN (12:10)
[2024-09-16] MEDS ORDERED: LIDOCAINE 2% MPF LOCAL 5 ML VIAL EPI PRN (12:10)
[2024-09-16] MEDS ORDERED: NALOXONE HCL 1 MG in SODIUM CHLORIDE 0.9% 1,000 ML IV PRN (12:10)
[2024-09-16] MEDS ORDERED: ROPIVACAINE 0.5% PF 5 MG/ML 20 ML VIAL EPI PRN (12:10)
[2024-09-16] MEDS ORDERED: NALOXONE HCL 0.4 MG/1 ML VIAL/CARP IV PRN (12:10)
--- NOTE | 2024-09-16 12:10 | Anesthesiology Consultation ---
Date of Service September 16, 2024 Assessment & Plan ASA ASA3 Proposed Anesthesia Anesthesia Type: Labor Epidural Risk / Benefits Reviewed With: PT / POA / Parent / Guardian, Accepts Plan and Informed Consent Obtained History Height/Weight Height: 5 ft 5 in Weight: 104.326 kg Allergies Allergy/AdvReac Type Severity Reaction Status Date / Time No Known Allergies Allergy Unverified 12/15/20 12:04 Medications Home Medications Medication Instructions Recorded Confirmed Last Taken vit no.133-ferrous 1 tab PO DAILY 08/14/23 09/16/24 09/16/24 06:15 fumarate 28 mg-folic acid 800 mcg tablet () ferrous sulfate 325 mg (65 mg 325 mg PO DAILY 08/20/24 09/16/24 09/16/24 06:15 iron) tablet (Iron (ferrous sulfate)) insulin glargine 100 unit/mL (3 12 unit subcut PM 09/01/24 09/01/24 09/02/24 21:30 mL) subcutaneous pen (Lantus Solostar U-100 Insulin) Active Medications Generic Name Dose Route Start Last Admin Trade Name Freq PRN Reason Stop Dose Admin Lactated Ringer's 1,000 mls @ 125 mls/hr 09/16/24 10:07 09/16/24 12:40 Lr IV 09/17/24 10:06 999 mls/hr .Q8H PRN Administration L&D Protocol Protocol Oxytocin 30 units in 500 mls @ 3 mls/hr 09/16/24 10:19 09/16/24 11:30 Pitocin 30 Units/Nss IV 09/18/24 10:18 0.18 units/hr .Q24H PRN 3 mls/hr Labor Induction/Augmentation Titration Protocol 0.18 UNITS/HR Ondansetron HCl 4 mg 09/16/24 12:10 09/16/24 12:26 Ondansetron Inj 2 Mg/Ml 2 Ml Vial IV 09/17/24 12:09 4 mg Q6H PRN Administration Nausea &/or Vomiting Past Medical History Medical History Hyperhidrosis Gestational diabetes mellitus (GDM) on insulin Anxiety Exercise / Class Metabolic Activity II 4-5 Yardwork/Stairs/Walk up hill Past Family History Family History Grandmother (Maternal) Diabetes Father Hypertension Other Gestational diabetes Past Surgical History Surgical History [place] teeth removed Past Anesthesia History No Hx of Anesthesia Complications and No Family Hx of Anesthesia Complications History of PONV No Hx of PONV and No Hx of Motion Sickness Social History Smoking Status: Former smoker Do You Dip or Chew Tobacco: No Hx Alcohol Use: No Hx Substance Use: No Review of Systems denies fever/cough/ colds/ chest pain/ SOB/ UZIEL denies UZIEL Physical Exam Vital Signs Last Vital Signs Temp 36.4 C L 09/16/24 07:52 Pulse 105 H 09/16/24 13:07 Resp 20 09/16/24 07:52 BP 129/79 09/16/24 13:02 Pulse Ox 99 09/16/24 13:07 ENMT Mouth: no TMJ abnormality and no dentition abnormality Thyromental Distance: > or= 3.5 Finger Breadths Mallampati Class: II Neck neck extension not limited Respiratory normal respiratory effort; no respiratory distress Auscultation: lungs clear to auscultation bilaterally Cardiovascular Rate/Rhythm: regular rate and regular rhythm Neurologic moves all extremities Psychiatric Orientation: alert and oriented x 3 Testing Laboratory Results 09/16/24 10:32 Blood Type O Negative 09/16/24 10:32 Antibody Screen NEGATIVE 09/16/24 10:32 09/16/24 09:03 POC Glucose 109 H
[2024-09-16] MEDS: ONDANSETRON INJ 2 MG/ML 2 ML VIAL IV PRN (12:26)
[2024-09-16] MEDS: fentaNYL citrate PF 100 MCG/2 ML VIAL ONE (12:36)
[2024-09-16] MEDS: BUPIVACAINE 0.25% PF 30 ML VIAL ONE (12:37)
[2024-09-16] MEDS: LIDOCAINE 2%/EPINEPHRINE 1:200,000 20 ML PF ONE (12:37)
[2024-09-16] MEDS: fentANYL 2 MCG/ML BUPIVacaine 0.125%-NSS 100ML BAG ONE (12:41)
[2024-09-16] MEDS: ePHEDrine sulfate 50 MG/ML AMP ONE (13:08)
[2024-09-16] MEDS: SODIUM CHLORIDE 0.9% PF INJ 10 ML VIAL ONE (13:08)
--- NOTE | 2024-09-16 14:04 | Labor Progress Brief Note ---
Date of Service September 16, 2024 Assessment & Plan Admission and Anticipated Discharge Date Admission Date: September 16, 2024 Physical Exam Genitourinary: Manual OB Exam: + cervical dilation 4 cm, + cervical effacement 60%, + station -2 and + amniotic fluid clear OB Exam Monitor Tracing: + external FHT monitor used, + external uterine monitor used, + category I and + normal FHT variability AROM with Amni-hook clear fluid Results & Data Vital Signs (Past 12 Hours) Vital Signs Temp Pulse Resp BP Pulse Ox 09/16/24 14:02 98 09/16/24 14:02 95 H 09/16/24 13:57 99 09/16/24 13:57 75 09/16/24 13:52 98 09/16/24 13:52 82 09/16/24 13:49 81 09/16/24 13:49 131/80 09/16/24 13:47 99 09/16/24 13:47 78 09/16/24 13:42 98 09/16/24 13:42 89 09/16/24 13:37 98 09/16/24 13:37 87 09/16/24 13:33 88 09/16/24 13:33 132/89 09/16/24 13:32 98 09/16/24 13:32 80 09/16/24 13:27 98 09/16/24 13:27 109 H 09/16/24 13:22 99 09/16/24 13:22 81 09/16/24 13:18 82 09/16/24 13:18 133/76 09/16/24 13:17 98 09/16/24 13:17 82 09/16/24 13:12 97 09/16/24 13:12 100 H 09/16/24 13:07 99 09/16/24 13:07 105 H 09/16/24 13:02 99 09/16/24 13:02 101 H 09/16/24 13:02 129/79 09/16/24 12:57 99 09/16/24 12:57 103 H 09/16/24 12:57 132/77 09/16/24 12:53 97 H 09/16/24 12:53 132/78 09/16/24 12:52 99 09/16/24 12:52 88 09/16/24 12:47 97 09/16/24 12:47 93 H 09/16/24 12:47 134/74 09/16/24 12:42 98 09/16/24 12:42 85 09/16/24 12:41 109 H 09/16/24 12:41 134/71 09/16/24 12:39 114 H 09/16/24 12:39 140/75 09/16/24 12:37 98 09/16/24 12:37 112 H 09/16/24 12:37 147/72 H 09/16/24 12:35 123 H 09/16/24 12:35 143/75 H 09/16/24 12:33 116 H 09/16/24 12:33 146/78 H 09/16/24 12:32 99 09/16/24 12:32 121 H 09/16/24 12:31 109 H 09/16/24 12:31 166/97 H 09/16/24 12:30 109 H 09/16/24 12:30 163/85 H 09/16/24 12:27 98 09/16/24 12:27 111 H 09/16/24 12:22 100 09/16/24 12:22 123 H 09/16/24 12:17 100 09/16/24 12:17 95 H 09/16/24 12:12 99 09/16/24 12:12 99 H 09/16/24 12:07 93 H 09/16/24 12:07 126/72 09/16/24 11:08 80 09/16/24 11:08 139/86 09/16/24 07:52 36.4 C L 100 H 20 132/81 09/16/24 07:45 100 H 20 132/81
[2024-09-16] MEDS: PENICILLIN GK 3 MU in DEXTROSE 5% 100 ML IV PRN (15:31)
[2024-09-16] MEDS: fentaNYL citrate PF 100 MCG/2 ML VIAL EPI STA (16:45)
[2024-09-16] MEDS: LIDOCAINE 2%/EPINEPHRINE 1:200,000 20 ML PF EPI STA (16:45)
[2024-09-16] MEDS: BUPIVACAINE 0.25% PF 30 ML VIAL EPI STA (16:45)
[2024-09-16] MEDS: SODIUM CHLORIDE 0.9% PF INJ 10 ML VIAL EPI STA (16:45)
[2024-09-16] MEDS ORDERED: bisacodyL 10 MG SUPP PR PRN (16:49)
[2024-09-16] MEDS ORDERED: HYDROCORTISONE ACETATE 25 MG SUPP PR PRN (16:49)
[2024-09-16] MEDS ORDERED: BENZOCAINE 20% SPRY 85 APPLN/85 GM CAN EXT PRN (16:49)
[2024-09-16] MEDS ORDERED: LORazepam 0.5 MG TAB PO PRN (16:51)
--- NOTE | 2024-09-16 16:54 | Delivery Summary ---
Vaginal Delivery Summary Date of Service September 16, 2024 Vaginal Delivery Summary Normal spontaneous vaginal delivery over an intact perineum delivering a live female with delayed cord clamping. Infant was delivered from the vertex presentation with Apgars of 8 and 9 weight pending. Cord blood was obtained and the placenta was then delivered spontaneously and intact. Perineum was inspected and no tears. QBL 50 mL. Final sponge and instrument count were correct. And the baby and mom were in satisfactory condition.
[2024-09-16] MEDS: DIPHTHER/TETAN/PERTUS Vaccine (Tdap, Adol/Adult) 0.5mL IM ONE (17:09)
--- NOTE | 2024-09-16 18:16 | Anesthesia Procedure Note ---
Date of Service September 16, 2024 Anesthesia Post Epidural Note Vital Signs Vital Signs: Temp Pulse Resp BP Pulse Ox 37.3 C 93 H 20 131/74 94 09/16/24 15:04 09/16/24 18:03 09/16/24 17:33 09/16/24 18:03 09/16/24 16:32 Notes Mental Status: alert / awake / arousable and participated in evaluation Patient Amnestic to Procedure: No Nausea / Vomiting: adequately controlled Pain: adequately controlled Airway Patency, RR, SpO2: stable & adequate BP & HR: stable & adequate Hydration State: stable & adequate Neuraxial Anesthesia: was administered and sensory block is resolving Anesthetic Complications: no major complications apparent and Pt Satisfied with anesthetic care Epidural: Removed without complications and With tip intact
[2024-09-16] MEDS: DOCUSATE SODIUM 100 MG CAP PO SCH (20:14)
[2024-09-16] MEDS: IBUPROFEN 600 MG TAB PO PRN (20:22)
[2024-09-17 06:27] LABS: Hematocrit (blood only) 33.3 % (37.0-47.0); Hemoglobin 10.9 g/dl (12.0-16.0); Mean Corpuscular Hemoglobin 26.7 pg (25.0-34.0); Mean Corpuscular Hgb Conc 32.7 g/dL (32.0-36.0); Mean Corpuscular Volume 81.6 fL (80.0-100.0); Mean Platelet Volume 9.9 fL (9.4-12.4); Platelet Count 215 K/uL (130-400); RDW Coefficient of Variation 15.9 % (11.5-14.5); RDW Standard Deviation 47.7 fL (36.4-46.3); Red Blood Count 4.08 M/uL (4.20-5.40); White Blood Count 10.69 K/ul (4.8-10.8)
[2024-09-17] MEDS: FERROUS SULFATE 325 MG TAB PO SCH (08:44)
[2024-09-17] MEDS: PRENATAL VITAMIN 1 TAB PO SCH (08:44)
--- NOTE | 2024-09-17 08:51 | Obstetrical Progress Note ---
Date of Service September 17, 2024 Assessment & Plan Admission and Anticipated Discharge Date Admission Date: September 16, 2024 Subjective Patient is seen and examined. She feels well, no complaints. Ambulating without dizziness Voiding without difficulty Tolerating regular diet with out N&V Bleeding is minimal No fever/ chills/ CP/ SOB/ N&V/ Leg pain Breast feeding without problems Lab Results 09/16/24 09/16/24 09/16/24 Range/Units 09:03 10:32 13:06 WBC 9.82 (4.8-10.8) K/ul RBC 4.29 (4.20-5.40) M/uL Hgb 11.7 L (12.0-16.0) g/dl Hct 35.2 L (37.0-47.0) % MCV 82.1 (80.0-100.0) fL MCH 27.3 (25.0-34.0) pg MCHC 33.2 (32.0-36.0) g/dL RDW Std Deviation 48.6 H (36.4-46.3) fL RDW Coeff of Dewayne 16.1 H (11.5-14.5) % Plt Count 252 (130-400) K/uL MPV 9.7 (9.4-12.4) fL POC Glucose 109 H 116 H (70-99) mg/dl Treponema pallidum Ab Negative (Negative) Blood Type O Negative Antibody Screen NEGATIVE 09/17/24 Range/Units 05:58 WBC 10.69 (4.8-10.8) K/ul RBC 4.08 L (4.20-5.40) M/uL Hgb 10.9 L (12.0-16.0) g/dl Hct 33.3 L (37.0-47.0) % MCV 81.6 (80.0-100.0) fL MCH 26.7 (25.0-34.0) pg MCHC 32.7 (32.0-36.0) g/dL RDW Std Deviation 47.7 H (36.4-46.3) fL RDW Coeff of Dewayne 15.9 H (11.5-14.5) % Plt Count 215 (130-400) K/uL MPV 9.9 (9.4-12.4) fL POC Glucose (70-99) mg/dl Treponema pallidum Ab (Negative) Blood Type Antibody Screen Vital Signs Temp Pulse Resp BP Pulse Ox O2 Del Method 09/17/24 03:06 36.8 C 75 16 106/69 96 Room Air 09/16/24 22:54 36.6 C 78 16 119/77 97 Room Air PE: General: Alert, orientedx3, NAD Abd: soft, NT, fundus firm, below Umbilicus Perineum intact, Lochia rubra minimal Ext; NT, no edema AP: 28 yo s/p , ppd# 1 VSS Afebrile doing well Continue routine care All questions were answered D/C home tonight Results & Data Vital Signs (Past 12 Hours) Vital Signs Temp Pulse Resp BP Pulse Ox O2 Del Method 09/17/24 03:06 36.8 C 75 16 106/69 96 Room Air 09/16/24 22:54 36.6 C 78 16 119/77 97 Room Air
[2024-09-17] MEDS: ACETAMINOPHEN 325 MG TAB PO PRN (08:53)
[2024-09-17] MEDS ORDERED: NON-FORMULARY MEDICATION (Ferrous Sulfate [Iron (Ferrous Sulfate)] 325 mg (65 mg iron) Tab PO SCH (09:00)
[2024-09-17] MEDS ORDERED: NON-FORMULARY MEDICATION (Pnv133-Ferrous Fumarate-Fa [Prenatal] 28-800 mg-mcg Tablet) PO SCH (09:00)
[2024-09-17 09:21] VITALS: RESP 20; O2SAT 98
[2024-09-17 16:17] VITALS: BP 140/86; PULSE 99; TEMP 98.6
[2024-09-17] MEDS ORDERED: bisacodyL 5 MG TABEC PO SCH (20:00)
== END 2024-09-17 17:35 | disposition home health service (06) | DRG 807 ==
LOC: 4S1 07:38 → 4E2 20:23